=== PATIENT | male | born 1945 | race Caucasian/White ===

== ENCOUNTER → 2017-12-29 09:50 | Outpatient (CLI) | payer MEDICARE, SELFPAY ==
--- NOTE | 2017-12-29 09:55 | XR_ITS ---
XR knee RT 4V Comparison: Right knee 09/01/2010 History: Right knee pain Technique: Weightbearing AP, lateral and Rolon views were performed as well as oblique. Findings: There is osteoarthritis with narrowing of the medial compartment to ~ 2 mm or less Subchondral cystic changes are seen on both sides the joint most evident at the medial tibial condyle and I believe have progressed slightly in the interval. Similarly minimal marginal osteophytes about the intercondylar notch are slightly more evident today and likely some mild progression of degenerative change. Lateral compartment is well-maintained but with chondrocalcinosis noted. Patellofemoral relationships appear satisfactory on sunrise view. Question some slight roughening of the medial femoral aspect of the femoral trochlear groove. Vascular clips at medial aspect lower leg reflecting previous brain are seen. Slight calcification SFA popliteal trifurcation vessels have progressed slightly since 2010 Impression: Osteoarthritis right knee most pronounced at the medial compartment Only slight progression of findings since 2010. Chondrocalcinosis most evident at lateral compartment
== END ==
PROVIDERS: PCP Family Medicine; Visit Provider Orthopaedic Surgery
DX: M25.561 Pain in right knee (principal)
CPT/HCPCS: 73564

== ENCOUNTER → 2023-08-16 10:44 | Outpatient (POV) | payer MEDICARE, SELFPAY ==
--- NOTE | 2023-08-16 12:11 | EXP.PAIN.OV ---
HPI Data of Consult Patient: new to practice Consult date: 08/16/23 Requesting Physician: Yolande Slade APRN Primary Care Provider: Gustavo Martinez MD Consult Narrative Reason for consult: Low back pain, right leg pain, buttocks pain History of present illness: Mr. Lake is a 78 year old male who presents today as a new patient. He is a referral from [facility]. Today he rates his pain a 10 out of 10. Patient states his pain is all in his low back to buttocks area with radiating symptoms into his groin and leg. Patient states this has been going on for years and progressively worsened over time. Patient does state that he was previously with Dr. Cameron's pain management however the injections they tried never seem to work. Patient states that he had 5 in his right knee and that had multiple low back injections. Patient states that they never tried any other options. He describes his pain as an aching, throbbing sensation with occasional sharp shooting pains into his groin and testicle. He does state that he cannot sit due to the pain he experiences into his buttocks that radiates down. He has tried multiple pillows and different positioning along with Tylenol, heat and ice and topicals. Patient states that nothing seems to really help his pain. He states it does interfere with his ability to perform activities of daily living such as cooking and cleaning. Patient does have significant health history and is on blood thinner.. Patient does also state in the past he did have a procedure done by [facility] however he is unsure what that procedure garza. Patient has recently had x-ray imaging however denies any more advanced imaging. He states he is interested in any help we may be able to provide. Patient is currently managed with oxycodone 5 mg from his previous pain clinic. He states he does not want to take this medication and is willing to do anything he can to try and get relief. His Fred has been reviewed and is appropriate. CC: Yolande Slade APRN [facility] Disclaimer: The information contained in this section may have been updated after the patient was seen, as this information can be updated by other users. Social History Smoking Status: Current every day smoker alcohol intake: never current occupational status: retired Travel in the last 8 weeks: None housing: house Review of Systems Review of Systems Review of systems:: pertinent systems reviewed and negative unless documented below Review of systems (narrative): Review of Systems: General: No recent weight changes, no fever, no sleep disturbances Respiratory: No cough, no shortness of air, no recurring pulmonary infections Cardiovascular/peripheral vascular: No chest pain, no palpitations, no edema, no shortness of breath Gastrointestinal: No new onset incontinence, normal bowel movements reported Genitourinary: No new onset incontinence Musculoskeletal: Tailbone/buttocks pain Psychiatric: [Normal mood/affect] Neurological: [Denies weakness in extremities], [denies balance issues] Meds Home Medications and Allergies Home Medications Medication Instructions Recorded Confirmed Type aspirin 81 mg tablet,delayed 81 mg PO ONCE 12/29/17 History release (Adult Low Dose Aspirin) atorvastatin 80 mg tablet 80 mg PO ONCE 12/29/17 History New Prescriptions to Start Prescriptions: Allergies Allergy/AdvReac Type Severity Reaction Status Date / Time NO KNOWN ALLERGIES Allergy Uncoded 12/29/17 11:28 Objective Narrative: Physical Exam: General: Alert and oriented x3, no acute distress, pleasant and cooperative Lungs: Respirations even and unlabored, symmetrical chest expansion Eyes: PERRL Musculoskeletal: Flexion and extension of lumbar/sacrum [spine] somewhat guarded secondary to pain, [antalgic gait noted] point tenderness noted along sacral spine Neurological: Speech clear, no gross sensory deficit Additional findings Additional findings: Lumbar x-ray AP and lateral views of the lumbar spine were obtained. No prior exam for comparison. No acute fracture or malalignment. Vertebral body heights preserved. Moderate degenerative changes present. There are multilevel osteophytes noted. Patient has undergone a fusion at L3-L4 and right SI joint levels. There are postoperative changes in the right upper quadrant. Vascular calcifications present. No acute paraspinal abnormality Assessment and Plan *Assessment and plan (1) Chronic pain syndrome: Status: Acute Category: Medical Code(s): G89.4 - Chronic pain syndrome (2) Degenerative disc disease, lumbar: Status: Acute Category: Medical Code(s): M51.36 - Other intervertebral disc degeneration, lumbar region (3) Lumbar radiculopathy: Status: Acute Category: Medical Code(s): M54.16 - Radiculopathy, lumbar region (4) Buttock pain: Status: Acute Category: Medical Code(s): M79.18 - Myalgia, other site (5) Status post lumbar spinal fusion: Status: Acute Category: Surgical Code(s): Z98.1 - Arthrodesis status (6) Right leg pain: Status: Acute Category: Medical Code(s): M79.604 - Pain in right leg (7) Right groin pain: Status: Acute Category: Medical Code(s): R10.31 - Right lower quadrant pain (8) Right testicular pain: Status: Acute Category: Medical Code(s): N50.811 - Right testicular pain Plan Patient is experiencing significant pain in and around his sacral spine with limited range of motion of his lumbar spine and point tenderness at his sacrum with palpation. Patient is experiencing radiating symptoms into his groin and testicle as well into his leg. I have discussed with patient that he may benefit from a caudal epidural. Risk and benefits were discussed with the patient and he would like to proceed forward with this plan of care. Patient states he had been on blood thinner in the past however he states that currently he is not taking any of this. We will reach out to his provider who prescribes the Plavix to confirm that he is not taking this medication for that this is acceptable but he is not on his current medication prior to this injection. I will also order x-ray imaging of his sacrum due to the significant pain with palpation and radiating symptoms to his groin and testicle. I will also order advanced imaging of a MRI without contrast of his lumbar spine. Patient will be ordered compounded cream. Patient will be scheduled for caudal epidural under fluoroscopy. Patient has been instructed to contact the clinic with any concerns before the next appointment. Dr. Lombardi has reviewed this note and agrees with this plan of care. This note was dictated using voice recognition software and make contain errors or omissions.
[2023-08-16 12:49] VITALS: BP 127/85; PULSE 105; RESP 20; O2SAT 97; BMI 25.0
== END ==
LOC: SC.PAIN 10:46
PROVIDERS: PCP Family Medicine; Visit Provider Nurse Practitioner Family
DX: G89.4 Chronic pain syndrome (principal); M79.18 Myalgia, other site; Z98.1 Arthrodesis status; M79.604 Pain in right leg; R10.31 Right lower quadrant pain; N50.811 Right testicular pain; M51.16 Intervertebral disc disorders with radiculopathy, lumbar region
CPT/HCPCS: 99202; G0463

== ENCOUNTER 2023-08-16 12:00 | Outpatient (CLI) | payer MEDICARE, SELFPAY ==
--- NOTE | 2023-08-16 12:06 | XR_ITS ---
FINAL REPORT CLINICAL HISTORY: BUTTOCKS PAIN..si surgery COMPARISON: None FINDINGS: AP, lateral, and oblique views of the lumbar spine were obtained. There is no acute fracture or acute malalignment. The patient has undergone a prior right sacroiliac fusion. There is a mild compression deformity of the L1 vertebral body, favor chronic. The L3 and L4 vertebral bodies are fused. There is multilevel degenerative disc disease, most prominently at the L2-3 level. No acute paraspinal abnormality is identified. IMPRESSION: Prior right SI joint fusion. Mild compression deformity of the L1 vertebral body, favor chronic. L3 and L4 vertebral bodies are fused, with multilevel degenerative disc disease most prominently at the L2-3 level. Reviewed, Interpreted and Dictated by Elvia Boyd MD Transcribed by Amanda Gabriel Authenticated and [facility]
== END 2023-08-16 23:59 ==
LOC: RAD 12:01
PROVIDERS: PCP Plastic Surgery; Visit Provider Anesthesiology
DX: M54.50 Low back pain, unspecified (principal); M53.3 Sacrococcygeal disorders, not elsewhere classified; M79.604 Pain in right leg
CPT/HCPCS: 72110; 99202; G0463

== ENCOUNTER 2023-09-02 12:48 | Outpatient (CLI) | payer MEDICARE, SELFPAY ==
--- NOTE | 2023-09-02 12:54 | MR_ITS ---
FINAL REPORT CLINICAL HISTORY: LEG PAIN, SACIRAL PAIN, LBP FINDINGS: Multiplanar MR imaging of the lumbar spine was performed without contrast. On the sagittal T2-weighted images, disc degeneration is seen throughout. There is partial fusion at L3-4. There is mild retrolisthesis of L4 on L5 and L5 on S1. Mild, multilevel endplate changes are seen. There is no evidence of fracture. No bony mass is identified. The conus is seen at approximately the L1 level and has an unremarkable appearance. L1-2: Annular disc bulge with facet arthropathy and osteophytes. There is mild bilateral neuroforaminal narrowing. L2-3: Annular disc bulge with facet arthropathy and osteophytes. There is mild bilateral neuroforaminal narrowing. L3-4: Facet arthropathy and osteophytes with mild bilateral neuroforaminal narrowing. L4-5: Annular disc bulge with facet arthropathy and osteophytes. There is moderate right and severe left neuroforaminal narrowing. L5-S1: Annular disc bulge with facet arthropathy and osteophytes. There is moderate right and severe left neuroforaminal narrowing. Postoperative changes are noted of the right SI joint. IMPRESSION: Multilevel degenerative disc disease with severe left neuroforaminal narrowing at L4-5 and L5-S1. Reviewed, Interpreted and Dictated by Aristeo Hampton III, MD Transcribed by Sherry Sandra Authenticated and [facility]
== END 2023-09-02 23:59 ==
LOC: RAD 12:49
PROVIDERS: PCP Nurse Practitioner Family; Visit Provider Nurse Practitioner Family
DX: M54.50 Low back pain, unspecified (principal); M79.604 Pain in right leg; M53.3 Sacrococcygeal disorders, not elsewhere classified
CPT/HCPCS: 72148; 76376

== ENCOUNTER 2023-09-05 13:28 | Day surgery (SDC) | payer MEDICARE, SELFPAY ==
[2023-09-05 13:55] VITALS: BP 159/82; PULSE 100; RESP 18; TEMP 36.6; O2SAT 96; BMI 25.0
[2023-09-05] MEDS: methylPREDNISolone ACETATE 80MG/ML VIAL 80 MG (14:10)
[2023-09-05 14:11] VITALS: BP 188/90; PULSE 102; RESP 18; O2SAT 95
[2023-09-05] MEDS: LIDOCAINE 1% 5ML PF VIAL 5 ML (14:11)
[2023-09-05 14:12] VITALS: BP 188/90; PULSE 99; RESP 18; O2SAT 95
[2023-09-05 14:16] VITALS: BP 164/88; PULSE 93; RESP 18; O2SAT 96
--- NOTE | 2023-09-05 14:28 | EXP.PAIN.PRO ---
Procedure Date: 09/05/23 Time: 14:00 Anesthesiologist:: Juan Alberto Kendrick CRNA Complications:: None Pre-procedure Diagnosis:: Degenerative disc lumbar spine multilevels. Lumbar radiculopathy. Lumbar postlaminectomy syndrome lumbar spondylosis. Multilevel lumbar facet arthropathy Post-procedure Diagnosis:: Same. Indications for Procedure:: Patient is a very pleasant 78-year-old male comes our clinic today for caudal epidural steroid injection. He reports low back pain as well as bilateral leg radicular symptoms. He rates his pain 7/10. He describes pain as constant, dull, aching. Patient reports pain is in tenths in the morning when getting out of bed. However, throughout the day it does seem to calm down to some degree. Procedure Details:: Details of the procedure explained to the patient. The patient taken procedure and placed in the prone position on fluoroscopy table the area over the low lumbar caudal area was cleaned using chlorhexidine as a cleansing solution. Using a 25-gauge 3 and half inch spinal needle the caudal space was accessed with ease using fluoroscopy guidance and a lateral position. Needle position was confirmed using contrast dye and a cephalad spread. At this time after negative aspiration a 6 cc solution containing 4 mL of normal saline, 1 cc of 1% lidocaine, 80 mg of Depo-Medrol was injected without difficulty. Patient tolerated procedure without difficulty. No complications. Plan and Disposition:: Patient was discharged without incident.
== END 2023-09-05 14:16 | disposition home or self-care (01) ==
LOC: SC.PAINP 13:29
PROVIDERS: PCP Nurse Practitioner Family; Visit Provider Nurse Anesthetist, Certified Registered
DX: M51.16 Intervertebral disc disorders with radiculopathy, lumbar region (principal); M47.26 Other spondylosis with radiculopathy, lumbar region; M96.1 Postlaminectomy syndrome, not elsewhere classified
CPT/HCPCS: 62323; J1040

== ENCOUNTER 2023-09-14 14:21 | Outpatient (POV) | payer MEDICARE, SELFPAY ==
--- NOTE | 2023-09-14 14:54 | EXP.PAIN.SOA ---
[facility] Pain Management SOAP Note Subjective:: Patient is a pleasant 78-year-old male who presents today for follow-up of caudal epidural on 09/04/2020. Patient rates his pain a 10 out of 10. He states that he did have relief with this injection however it only lasted for a few hours. He does state that he is back to his baseline and has severe pain throughout his low back. He does state this is a chronic issue and does affect with his everyday life. He states he has difficulty performing activities of daily living such as cooking and cleaning or even simple ambulation. Patient was on prior pain medication and gabapentin from a different pain clinic. He does state that he finished his last gabapentin tablet last night. He states that Dr. Cameron's office has been titrating him down. patient is interested in any help we may be able to provide. He does state that he has interest in the intrathecal pump. His Fred has been reviewed and is appropriate. Review of Systems: General: No recent weight changes, no fever, no sleep disturbances Respiratory: No cough, no shortness of air, no recurring pulmonary infections Cardiovascular/peripheral vascular: No chest pain, no palpitations, no edema, no shortness of breath Gastrointestinal: No new onset incontinence, normal bowel movements reported Genitourinary: No new onset incontinence Musculoskeletal: Low back pain Psychiatric: [Normal mood/affect] Neurological: [Denies weakness in extremities], [denies balance issues] Objective:: Physical Exam: General: Alert and oriented x3, no acute distress, pleasant and cooperative Lungs: Respirations even and unlabored, symmetrical chest expansion Eyes: PERRL Musculoskeletal: Flexion and extension of lumbar [spine] somewhat guarded secondary to pain, [antalgic gait noted] Neurological: Speech clear, no gross sensory deficit FINDINGS: Multiplanar MR imaging of the lumbar spine was performed without contrast. On the sagittal T2-weighted images, disc degeneration is seen throughout. There is partial fusion at L3-4. There is mild retrolisthesis of L4 on L5 and L5 on S1. Mild, multilevel endplate changes are seen. There is no evidence of fracture. No bony mass is identified. The conus is seen at approximately the L1 level and has an unremarkable appearance. L1-2: Annular disc bulge with facet arthropathy and osteophytes. There is mild bilateral neuroforaminal narrowing. L2-3: Annular disc bulge with facet arthropathy and osteophytes. There is mild bilateral neuroforaminal narrowing. L3-4: Facet arthropathy and osteophytes with mild bilateral neuroforaminal narrowing. L4-5: Annular disc bulge with facet arthropathy and osteophytes. There is moderate right and severe left neuroforaminal narrowing. L5-S1: Annular disc bulge with facet arthropathy and osteophytes. There is moderate right and severe left neuroforaminal narrowing. Postoperative changes are noted of the right SI joint. IMPRESSION: Multilevel degenerative disc disease with severe left neuroforaminal narrowing at L4-5 and L5-S1. Reviewed, Interpreted and Dictated by Aristeo Hampton III, MD Transcribed by Sherry Sandra Authenticated and [facility] Assessment:: Degenerative disc disease of lumbar spine with lumbar radiculopathy symptoms, prior lumbar fusion, right groin pain, right testicular pain Plan:: Patient is experiencing significant pain throughout his low back. I have reviewed over the MRI findings with the patient. I have also discussed with the patient that we will start him on [place] 5 mg 3 times daily and send and also a prescription of the gabapentin 600 mg twice daily. I have discussed with the patient about starting his medications. He reports he is getting monthly and he acknowledges understanding and is in agreement. We will have him do a urine drug screen today. Patient does also state that he is not getting any additional medication from his prior pain clinic. I have reviewed over the intrathecal pain pump information with risk and benefits and educational handouts. He does state he would like to proceed forward with this plan of care. Patient has tried and failed conservative therapy including prior back fusion. I will order the patient a psychological evaluation and if he is deemed an appropriate candidate we will proceed forward with the intrathecal pump trial at a later date. Patient will return to clinic in 1 month for reevaluation of symptoms and plan of care. Patient has been instructed to contact the clinic with any concerns before the next appointment. Dr. Lombardi has reviewed this note and agrees with this plan of care. This note was dictated using voice recognition software and make contain errors or omissions. [facility] Disclaimer: The information contained in this section may have been updated after the patient was seen, as this information can be updated by other users. Medical History HTN (hypertension) HLD (hyperlipidemia) Heart disease Surgical History Surgical history unknown Family History Other No significant family history Social History Smoking Status: Current every day smoker alcohol intake: never current occupational status: retired Travel in the last 8 weeks: None housing: house
[2023-09-14 15:28] VITALS: BP 162/99; PULSE 118; RESP 18; O2SAT 94; BMI 24.3
[2023-09-14 17:53] LABS: Amphetamine/Metha Screen,Urine Negative ng/ml (<1000)
[2023-09-14 17:54] LABS: Barbiturates Screen,Urine Negative ng/ml (<200); Benzodiazepines Screen,Urine Negative ng/ml (<200)
[2023-09-14 17:55] LABS: Cannabinoid Screen,Urine Positive ng/ml (<50); Cocaine Screen,Urine Negative ng/ml (<300)
[2023-09-14 17:56] LABS: Methadone Screen,Urine Negative ng/ml (<300)
[2023-09-14 17:57] LABS: Opiate Screen,Urine Positive ng/ml (<300); Phencyclidine Screen,Urine Negative ng/ml (<25)
[2023-09-22 13:34] LABS: Oxycodone (GC/MS) >3000 ng/mL (Cutoff=100); Oxymorphone (GC/MS) >3000 ng/mL (Cutoff=100)
== END 2023-09-14 23:59 | disposition home or self-care (01) ==
PROVIDERS: PCP Nurse Practitioner Family; Visit Provider Nurse Practitioner Family
DX: Z79.891 Long term (current) use of opiate analgesic (principal); M51.16 Intervertebral disc disorders with radiculopathy, lumbar region; M43.26 Fusion of spine, lumbar region; R10.30 Lower abdominal pain, unspecified; N50.811 Right testicular pain
CPT/HCPCS: 80307; 80361; 80365; 99212; G0463; G0480

== ENCOUNTER 2023-10-16 13:10 | Outpatient (POV) | payer MEDICARE, SELFPAY ==
--- OUTSIDE RECORDS SUMMARY | 2023-10-16 13:13 | XMS_ITS | Continuity of Care Document ---
Author Name Unknown Address [address] [place], [place] [id number] Organization [facility] Phone Care Team Providers Care Pharmaceutical Physician Name Role Phone INESSA LEUNG Primary Attending Unavailable DEION HAMILTON Primary Care INESSA LEUNG Unavailable Unavailable INESSA LEUNG Admitting Unavailable ALLERGIES AND ADVERSE REACTIONS ALLERGIES AND ADVERSE REACTIONS Code System Allergy Substance Adverse Reaction Date Reaction (Severity) Comment Status Reported By Updated By No Known Allergies [id number] on June 05, 2023 2:20:35 PM [place] ASSESSMENTS Asthma ; Hyperlipidemia ; Hypertensive disorder ; Osteoarthritis ; Pain in right hip joint ; FAMILY HISTORY RELATION: Father Status: Cause of : Unknown Age at : Unknown SNOMED-CT Diagnosis Age At Onset [id number] Parkinson's disease RELATION: Mother Status: Cause of : Unknown Age at : Unknown SNOMED-CT Diagnosis Age At Onset [id number] Neoplasm of colon [id number] Heart disease RELATION: Brother Status: LIVING SNOMED-CT Diagnosis Age At Onset [id number] Hypertensive disorder [id number] Diabetes mellitus PROBLEMS PATIENT PROBLEMS Code Description/Comments Status Updated By [id number] Asthma active [id number] on 2022 5:06:05 PM UT [id number] Hyperlipidemia active [id number] on 2022 5:06:07 PM UT 08372722 Hypertensive disorder active [id number] on June 01, 2023 5:06:08 PM UT [id number] Osteoarthritis active [id number] on 2022 5:06:09 PM UT [id number] Pain in right hip joint active G [id number] on June 05, 2023 2:20:47 PM [place] TREATMENT PLAN DISCHARGE MEDICATIONS Status RXNORM Medication Dose Route Frequency Dates Comments U pdated By Patient discharge medication information is not available. PATIENT OPEN ORDERS Code System Description Frequency Occurrences Priority [place] [address]-0 LOINC Unspecified body region Fluoroscopy Less than 1 h ONE TIME 0 Routine June 05, 2023 2:46:00 PM [facility] XOCHITL WYLIE [id number] on June 05, 2023 2:49:00 PM [facility] SCHEDULED PROCEDURES Code System Description Status Scheduled Date Upd ated By Patient scheduled procedure information is not available. MEDICATIONS HOME MEDICATIONS Status RXNORM Medication Dose Route Frequency Dates Comments R eported By Updated By Active gabapentin (NEURONTIN) 400.0 MG PO TID Last Dose: [id number] on June 01, 2023 5:06:17 PM [facility] Active Lopressor . 25.0 MG PO DAILY Last Dose: [id number] on June 01, 2023 5:06:22 PM [facility] Active 011378 Atorvastatin Calcium Oral Tablet 80 MG 80.0 MG PO DAILY Last Dose: [id number] on June 01, 2023 5:06:28 PM [facility] Active 4523266 Albuterol Sulfate HFA Inhalation Aerosol Solution 108 (90 Base) MCG/ACT 1.0 PUF INHALED Q4HPRN Last Dose: [id number] on June 01, 2023 5:06:31 PM [facility] Active 965271 Cefuroxime Axetil Oral Tablet 500 MG 500.0 MG PO BID Last Dose: [id number] on June 01, 2023 5:06:35 PM [facility] Active 902395 Clopidogrel Bisulfate Oral Tablet 75 MG 75.0 MG PO DAILY Last Dose: [id number] on June 01, 2023 5:06:40 PM [facility] Active 044279 levoFLOXacin Oral Tablet 500 MG 500.0 MG PO DAILY Last Dose: [id number] on June 01, 2023 5:06:46 PM [facility] Active 8325647 oxyCODONE HCl Oral Tablet 10 MG 10.0 MG PO Q8H Last Dose: [id number] on June 01, 2023 5:06:50 PM [facility] DISCHARGE MEDICATIONS Status RXNORM Medication Dose Route Frequency Dates Comments Physic tom Updated By No Discharge Medication Info rmation Available INPATIENT MEDICATIONS Status RXNORM Medication Dose Route Frequency Rate Quantity Dates Comments Physician Updated By [facility] [id number] lidocaine (XYLOCAINE) 1 % SOLN 20.0 ML ONE TIME ONLY Start: Decemb er 2022 12:16: 00 PM [facility] End: Decemb er 18, 2023 12:16: 00 PM [facility] MUNISWAMY INESSA INTERFAC ED on June 05, 2023 12:16:00 PM UT Discont inued DEPO-MEDROL 40 MG/ML SUSP 40.0 MG INTRAM USCULA R ONE TIME ONLY Start: [facility] 2022 12:16: 00 PM UTC End: [facility] 2022 12:16: 00 PM UT MUNISWAMY INESSA INTERFAC ED on June 05, 2023 12:16:00 PM UT SOCIAL HISTORY SOCIAL HISTORY SNOMED-CT Social History Element Description Effective Dates Offered Cessation Comment UpdatedBy [id number] Current Tobacco smoking status Never Smoked [id number] on June 01, 2023 5:05:36 PM [facility] [id number] Historical Tobacco smoking status Current Every Day Smoker 1/2-1 ppd [id number] on January 26, 2022 4:23:46 PM [facility] [id number] Historical Tobacco smoking status Former Smoker [id number] on April 19, 2021 1:04:17 PM [place] SOCIAL HISTORY - Gender Sex: Male SOCIAL HISTORY - Sexual Behavior Sexual Orientation Gender Identity SNOMED-CT Description SNO MED -CT Description Activity Level No of Partners Partner Type UpdatedBy Information is not available VITAL SIGNS PATIENT VITAL SIGNS This section displays the mo st recent value for each vital sign as of June 06, 2023 5:07:55 AM [facility] Loinc Code Vital Sign Activity Date Result Updated By 8302-2 Body height June 01 5:05:28 PM UT 167.64 cm (66.0 in) [id number] on June 01, 2023 5:05:28 PM [facility] 03403-8 Body mass index (BMI) [Ratio] June 01, 2023 5:05:28 PM UT 26.467 kg/m2 [id number] on June 01, 2023 5:05:28 PM [facility] 3140-1 Body Surface Area Derived From Formula June 01, 2023 5:05:28 PM UT 1.8384 m2 [id number] on June 01, 2023 5:05:28 PM [facility] 13111-6 Body weight Measured June 01, 2023 5:05:28 PM UT 74.389 kg (164.0 lb) [id number] on June 01, 2023 5:05:28 PM [facility] PEDIATRIC GROWTH CHART - VITAL SIGNS This section displays Head C ircumference Percentile, Weight for Length Percentile and BMI Percentile Loinc Code Pediatric Measure Age (Months) Result Updat ed By No Pediatric Growth Chart Pe rcentile Information Available. PROCEDURES PATIENT PROCEDURES Procedure information is not available. PROCEDURE NOTE Note Title Operative/Procedure Note Date Of Service June 05, 2023 2: 34:50 PM [facility] Created By [id number] on June 05, 2023 2:34:50 PM [facility] Signed By [id number] on June 05, 2023 2:35:30 PM [facility] Pre-Procedure Diagnosis Pain in right hip joint Post- Procedure Diagnosis Pain in right hip joint Procedure / Surgery None Intra-articular right hip injection Anesthesia Type Local anesthesia Estimated Blood Loss None Complications None Present at Time of Surgery Present Indication Right hip pain Procedure Description / Findings Right Hip Injection The patient understands the risks and benefits of the procedure and wishes to proceed. The patient was seen in the preoperative area. Patient's consent was obtained and updated. Vitals were taken. Patient was then brought to the procedure suite and placed in a supine position for the injection. The appropriate anatomic area was widely prepped with Chloraprep and draped in a sterile fashion. Noninvasive monitoring per routine anesthesia protocol was placed. Under fluoroscopic guidance using an AP view, a 22 gauge straight tip spinal needle was passed through skin and anesthetized with 1% Lidocaine without epinephrine. The needle tip was guided to the right hip joint using fluoroscopy. 2mL of [id number] preservative free contrast were injected into the joint to confirm location. A clear outline was obtained and 5mL of steroid solution containing 4mL 0.25% bupivacaine, and 1mL 40mg Depo-medrol was injected. The patient tolerated with no refugio-procedural complications. A sterile dressing was placed over the puncture sites. Specimens None Tubes/Drains None Implants None Disposition of Patient Home Electronically signed by XOCHITL LEDBETTER on [address] [facility] Problems Concern Status Health Concern problem infor mation not available. Smoking Status Status Years Used Consumed packs p er day Health Concern smoking histo ry information not available. Family History Concern Status Health Concern family histor y information not available. ENCOUNTERS ENCOUNTER INFORMATION Reason for Visit PAIN IN RIGHT HIP Admission June 05, 2023 1:49:00 PM UTC [address] [address] Discharge June 05, 2023 6:49:00 PM UTC DISCHARGED TO HOME OR SELF CARE ENCOUNTER DIAGNOSES Notes information is not otf ilable. Code System Diagnosis Onset Date Diagnosis information is not available. ABSTRACT DIAGNOSES Code System Diagnosis Updated By M25.551 ICD10 PAIN IN RIGHT HIP [id number] on May 24, 2023 8:34:29 PM UTC CARE TEAM Care Pharmaceutical Physician Role INESSA LEUNG Primary Attending DEION HAMILTON Primary Care INESSA LEUNG Referring INESSA LEUNG Admitting CARE TEAM CARE merchandising assistant Role on Team Status Start Date End Date Update d By ALFONSO Mayer MD PHY PCP normal May 24, 2023 8:34:29 PM UTC June 05, 2023 6:49:00 PM UTC [id number] on May 24, 2023 8:34:29 PM UTC XOCHITL WYLIE PHY Referring normal May 24, 2023 8:34:29 PM UTC June 05, 2023 6:49:00 PM UTC [id number] on May 24, 2023 8:34:29 PM UTC XOCHITL LEDBETTER Attending normal May 24, 2023 8:34:29 PM UTC June 05, 2023 6:49:00 PM UTC [id number] on May 24, 2023 8:34:29 PM UTC MUNJOSY WYLIE PHY Admitting normal May 24, 2023 8:34:29 PM UTC June 05, 2023 6:49:00 PM UTC [id number] on May 24, 2023 8:34:29 PM UTC
--- OUTSIDE RECORDS SUMMARY | 2023-10-16 13:13 | XMS_ITS | Continuity of Care Document ---
Author Name Unknown Address [address] [place], [place] [id number] Organization [facility] Phone Care Team Providers Care Sign Writer Hand Name Role Phone INESSA LEUNG Surgeon Unavailable INESSA LEUNG Primary Attending Unavailable DEION HAMILTON Primary Care INESSA LEUNG Unavailable Unavailable INESSA LEUNG Admitting Unavailable ALLERGIES AND ADVERSE REACTIONS ALLERGIES AND ADVERSE REACTIONS Code System Allergy Substance Adverse Reaction Date Reaction (Severity) Comment Status Reported By Updated By No Known Allergies [id number] on June 05, 2023 2:20:35 PM [facility] Asthma ; Hyperlipidemia ; Hypertensive disorder ; Osteoarthritis ; Pain in right hip joint ; FAMILY HISTORY RELATION: Father Status: Cause of : Unknown Age at : Unknown SNOMED-CT Diagnosis Age At Onset [id number] Parkinson's disease RELATION: Mother Status: Cause of : Unknown Age at : Unknown SNOMED-CT Diagnosis Age At Onset [id number] Neoplasm of colon [id number] Heart disease RELATION: Brother Status: LIVING SNOMED-CT Diagnosis Age At Onset 14319843 Hypertensive disorder 27433056 Diabetes mellitus PROBLEMS PATIENT PROBLEMS Code Description/Comments Status Updated By [id number] Asthma active [id number] on 2022 5:06:05 PM [facility] 92648103 Hyperlipidemia active HVJ0268 on 2022 5:06:07 PM UT 39122561 Hypertensive disorder active [id number] 4 on June 01, 2023 5:06:08 PM UT 827066092 Osteoarthritis active [id number] on 2022 5:06:09 PM UT [id number] Pain in right hip joint active G [id number] on June 05, 2023 2:20:47 PM UT TREATMENT PLAN DISCHARGE MEDICATIONS Status RXNORM Medication Dose Route Frequency Dates Comments U pdated By Patient discharge medication information is not available. PATIENT OPEN ORDERS Code System Description Frequency Occurrences Priority Start [place] [address]-1 LOINC Unspecified body region Fluoroscopy Less than 1 h ONE TIME 0 Routine June 05, 2023 2:46:00 PM [facility] XOCHITL WYLIE [id number] on June 05, 2023 2:49:00 PM [facility] SCHEDULED PROCEDURES Code System Description Status Scheduled Date Upd ated By Patient scheduled procedure information is not available. MEDICATIONS HOME MEDICATIONS Status RXNORM Medication Dose Route Frequency Dates Comments R eported By Updated By Active gabapentin (NEURONTIN) 400.0 MG PO TID Last Dose: [id number] on June 01, 2023 5:06:17 PM [facility] Active Lopressor . 25.0 MG PO DAILY Last Dose: [id number] on June 01, 2023 5:06:22 PM [facility] Active 951538 Atorvastatin Calcium Oral Tablet 80 MG 80.0 MG PO DAILY Last Dose: [id number] on June 01, 2023 5:06:28 PM [facility] Active 8169759 Albuterol Sulfate HFA Inhalation Aerosol Solution 108 (90 Base) MCG/ACT 1.0 PUF INHALED Q4HPRN Last Dose: [id number] on June 01, 2023 5:06:31 PM [facility] Active 006992 Cefuroxime Axetil Oral Tablet 500 MG 500.0 MG PO BID Last Dose: [id number] on June 01, 2023 5:06:35 PM [facility] Active 429443 Clopidogrel Bisulfate Oral Tablet 75 MG 75.0 MG PO DAILY Last Dose: [id number] on June 01, 2023 5:06:40 PM [facility] Active 034251 levoFLOXacin Oral Tablet 500 MG 500.0 MG PO DAILY Last Dose: [id number] on June 01, 2023 5:06:46 PM [facility] Active 8742909 oxyCODONE HCl Oral Tablet 10 MG 10.0 MG PO Q8H Last Dose: [id number] on June 01, 2023 5:06:50 PM [facility] DISCHARGE MEDICATIONS Status RXNORM Medication Dose Route Frequency Dates Comments Physic tom Updated By No Discharge Medication Info rmation Available INPATIENT MEDICATIONS Status RXNORM Medication Dose Route Frequency Rate Quantity Dates Comments Physician Updated [facility] [id number] lidocaine (XYLOCAINE) 1 % SOLN 20.0 ML ONE TIME ONLY Start: Decemb er 2022 12:16: 00 PM UTC End: Decemb er 2022 12:16: 00 PM UTC MUNISWAMY INESSA INTERFAC ED on June 05, 2023 12:16:00 PM UT Discont inued DEPO-MEDROL 40 MG/ML SUSP 40.0 MG INTRAM USCULA R ONE TIME ONLY Start: Decemb er 2022 12:16: 00 PM UTC End: Decemb er 2022 12:16: 00 PM UTC MUNISWAMY INESSA INTERFAC ED on June 05, 2023 12:16:00 PM UT SOCIAL HISTORY SOCIAL HISTORY SNOMED-CT Social History Element Description Effective Dates Offered Cessation Comment UpdatedBy [id number] Current Tobacco smoking status Never Smoked [id number] on June 01, 2023 5:05:36 PM UT [id number] Historical Tobacco smoking status Current Every Day Smoker 1/2-1 ppd [id number] on January 26, 2022 4:23:46 PM UT 8990412 Historical Tobacco smoking status Former Smoker [id number] on April 19, 2021 1:04:17 PM UT SOCIAL HISTORY - Gender Sex: Male SOCIAL HISTORY - Sexual Behavior Sexual Orientation Gender Identity SNOMED-CT Description SNO MED -CT Description Activity Level No of Partners Partner Type UpdatedBy Information is not available VITAL SIGNS PATIENT VITAL SIGNS This section displays the mo st recent value for each vital sign as of June 08, 2023 4:18:24 PM UT Loinc Code Vital Sign Activity Date Result Updated By 8302-2 Body height June 01 5:05:28 PM UT 167.64 cm (66.0 in) [id number] on June 01, 2023 5:05:28 PM [facility] 25114-0 Body mass index (BMI) [Ratio] June 01, 2023 5:05:28 PM UT 26.467 kg/m2 [id number] on June 01, 2023 5:05:28 PM [facility] 3140-1 Body Surface Area Derived From Formula June 01, 2023 5:05:28 PM UT 1.8384 m2 [id number] on June 01, 2023 5:05:28 PM [facility] 50909-1 Body weight Measured June 01, 2023 5:05:28 PM UT 74.389 kg (164.0 lb) [id number] on June 01, 2023 5:05:28 PM UT PEDIATRIC GROWTH CHART - VITAL SIGNS This section displays Head C ircumference Percentile, Weight for Length Percentile and BMI Percentile Loinc Code Pediatric Measure Age (Months) Result Updat ed By No Pediatric Growth Chart Pe rcentile Information Available. PROCEDURES PATIENT PROCEDURES Procedure information is not available. PROCEDURE NOTE Note Title Operative/Procedure Note Date Of Service June 05, 2023 2: 34:50 PM UTC Created By [id number] on June 05, 2023 2:34:50 PM UT Signed By [id number] on June 05, 2023 2:35:30 PM UTC Pre-Procedure Diagnosis Pain in right hip joint [...] right hip joint using fluoroscopy. 2mL of [id number] preservative free contrast were injected into the joint to confirm location. A clear outline was obtained and 5mL of steroid solution containing 4mL 0.25% bupivacaine, and 1mL 40mg Depo-medrol was injected. The patient tolerated with no refugio-procedural complications. A sterile dressing was placed over the puncture sites. Specimens None Tubes/Drains None Implants None Disposition of Patient Home Electronically signed by XOCHITL LEDBETTER on [address] [facility] Problems Concern Status Health Concern problem infor mation not available. Smoking Status Status Years Used Consumed packs p er day Health Concern smoking histo ry information not available. Family History Concern Status Health Concern family histor y information not available. ENCOUNTERS ENCOUNTER INFORMATION Reason for Visit PAIN IN RIGHT HIP Admission June 05, 2023 1:49:00 PM [facility] [address] [facility] [address] Discharge June 05, 2023 6:49:00 PM UT DISCHARGED TO HOME OR SELF CARE ENCOUNTER DIAGNOSES Notes information is not otf ilable. Code System Diagnosis Onset Date Diagnosis information is not available. 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 [id number] on June 08, 2023 4:17:55 PM UT M48.061 ICD10 SPINAL STENOSIS, LUMBAR REGION WITHOUT NEUROGENIC CLAUDICATION [id number] on June 08, 2023 4:17:55 PM UT M79.2 ICD10 NEURALGIA AND NEURITIS, UNSP ECIFIED [id number] on June 08, 2023 4:17:55 PM UT M46.00 ICD10 SPINAL ENTHESOPATHY, SITE UN SPECIFIED [id number] on June 08, 2023 4:17:55 PM UT C92.01 ICD10 ACUTE MYELOBLAST IC LEUKEMIA, IN REMISSION [id number] on June 08, 2023 4:17:55 PM UT Z91.81 ICD10 HISTORY OF FALLING [id number] o n June 08, 2023 4:17:55 PM UT M70.71 ICD10 OTHER BURSITIS OF HIP, RIGHT HIP [id number] on June 08, 2023 4:17:55 PM UT F11.20 ICD10 OPIOID DEPENDENCE, UNCOMPLIC ATED [id number] on June 08, 2023 4:17:55 PM UT CARE TEAM Care Sign Writer Hand Role INESSA LEUNG Surgeon INESSA LEUNG Primary Attending [facility] Primary Care INESSA LEUNG Referring INESSA LEUNG Admitting CARE TEAM CARE general supervisor Role on Team Status Start Date End Date Update d By XOCHITL LEDBETTER Surgeon normal June 05, 2023 1:49:00 PM UT June 05, 2023 6:49:00 PM UTC [id number] on June 08, 2023 4:18:04 PM UTC ALFONSO Mayer MD PHY PCP normal May 24, 2023 8:34:29 PM UTC June 05, 2023 6:49:00 PM UTC [id number] on June 08, 2023 4:18:04 PM UTC XOCHITL LEDBETTER Referring normal May 24, 2023 8:34:29 PM UTC June 05, 2023 6:49:00 PM UTC [id number] on June 08, 2023 4:18:04 PM UTC XOCHITL LEDBETTER Attending normal May 24, 2023 8:34:29 PM UTC June 05, 2023 6:49:00 PM UTC [id number] on June 08, 2023 4:18:04 PM UTC XOCHITL WYLIE PHY Admitting normal May 24, 2023 8:34:29 PM UTC June 05, 2023 6:49:00 PM UTC [id number] on June 08, 2023 4:18:04 PM UTC
--- NOTE | 2023-10-16 14:01 | A.OFFVIS_ITS ---
[facility] Pain Management SOAP Note Subjective:: Patient is a pleasant 78-year-old male who presents today for medication refill and follow-up. He rates his pain a 9 out of 10. Patient denies any new trauma or injury. He does state from our last visit where he did want to proceed forward with the pump trial option he officially has his psych eval scheduled on October 22. Patient was also prescribed his gabapentin 600 mg twice a day and [place] 5 mg 3 times a day for a temporary basis until we could proceed forward with the pump trial. Patient denies any side effects from these medications. He states that they really do not do a whole lot for his pain. Patient states that due to his 's health he has had to step up around the house and doing more housework. He states that he has very limited quality of life due to the chronic pain. His Fred has been reviewed and is appropriate. Review of Systems: General: No recent weight changes, no fever, no sleep disturbances Respiratory: No cough, no shortness of air, no recurring pulmonary infections Cardiovascular/peripheral vascular: No chest pain, no palpitations, no edema, no shortness of breath Gastrointestinal: No new onset incontinence, normal bowel movements reported Genitourinary: No new onset incontinence Musculoskeletal: Low back pain Psychiatric: [Normal mood/affect] Neurological: [Denies weakness in extremities], [denies balance issues] Objective:: Physical Exam: General: Alert and oriented x3, no acute distress, pleasant and cooperative Lungs: Respirations even and unlabored, symmetrical chest expansion Eyes: PERRL Musculoskeletal: Flexion and extension of lumbar [spine] somewhat guarded secondary to pain, [antalgic gait noted] Neurological: Speech clear, no gross sensory deficit Assessment:: Degenerative disc disease of lumbar spine with lumbar radiculopathy symptoms, prior lumbar fusion, right groin pain, right testicular pain Plan:: I did review over the patient's finding regarding his urine drug screen. Patient was previously prescribed oxycodone from an outside provider and states that he knew that there was a little bit remaining in his system from our last visit. I have counseled the patient that we will rescreen him today. I did employee counselor the patient that if his drug screen continues to be inappropriate that we will not be able to proceed forward with additional refills in the future. Patient acknowledges understanding. I will send in a refill of his gabapentin and [place] and provide a 1 month supply of this medication. We will have the patient follow-up in 2 weeks following his psych eval. Risks and benefits of the medication have been explained in detail to the patient. The patient does understand the risk of dependence on the medication when given over a prolonged period. Patient has been advised of risks of oversedation with the prescribed medication. Narcan has been offered to the paitent in the event of oversedation. Patient has been advised that a family member should also be educated regarding administration of Narcan. The patient has been advised to consult with his/her primary care provider and pharmacist regarding drug-drug interaction of medications currently prescribed. Patient has been prescribed a controlled substance after being counseled on the medication, medication safety, and possible side effects. Opioid contract was reviewed and signed by the patient, and that they have agreed to all of the terms set forth by our compliance program. Patient has been instructed to contact the clinic with any concerns before the next appointment. Dr. Lombardi has reviewed this note and agrees with this plan of care. This note was dictated using voice recognition software and make contain errors or omissions. [facility] Disclaimer: The information contained in this section may have been updated after the patient was seen, as this information can be updated by other users. Medical History HTN (hypertension) HLD (hyperlipidemia) Heart disease Surgical History Surgical history unknown Family History Other No significant family history Social History Smoking Status: Current every day smoker alcohol intake: never current occupational status: retired Travel in the last 8 weeks: None housing: house
[2023-10-16 15:15] VITALS: BP 155/84; PULSE 82; RESP 18; O2SAT 94; BMI 24.3
[2023-10-16 16:52] LABS: Barbiturates Screen,Urine Negative ng/ml (<200)
[2023-10-16 16:53] LABS: Amphetamine/Metha Screen,Urine Negative ng/ml (<1000); Benzodiazepines Screen,Urine Negative ng/ml (<200)
[2023-10-16 16:54] LABS: Cannabinoid Screen,Urine Negative ng/ml (<50); Methadone Screen,Urine Negative ng/ml (<300)
[2023-10-16 16:55] LABS: Cocaine Screen,Urine Negative ng/ml (<300)
[2023-10-16 16:56] LABS: Opiate Screen,Urine Positive ng/ml (<300); Phencyclidine Screen,Urine Negative ng/ml (<25)
== END 2023-10-16 23:59 | disposition home or self-care (01) ==
PROVIDERS: PCP Nurse Practitioner Family; Visit Provider Nurse Practitioner Family
DX: Z79.891 Long term (current) use of opiate analgesic (principal); M51.16 Intervertebral disc disorders with radiculopathy, lumbar region; M43.26 Fusion of spine, lumbar region; R10.813 Right lower quadrant abdominal tenderness; N50.811 Right testicular pain
CPT/HCPCS: 80307; 80361; 80365; 99212; G0463; G0480

== ENCOUNTER 2023-10-30 13:32 | Outpatient (POV) | payer MEDICARE, SELFPAY ==
--- NOTE | 2023-10-30 14:04 | A.OFFVIS_ITS ---
[facility] Pain Management SOAP Note Subjective:: Patient is a pleasant 78-year-old male who presents today for follow-up for psychological evaluation. He rates his pain a 10 out of 10. Patient denies any new trauma or injury. Patient states he continues to have chronic pain throughout his back. He states that he is still wanting to proceed forward with the pump trial. He states the oral medication we sent in just does not seem to do a whole lot. Patient does state that he has chronic pain and that now they are thinking possibly that his even has cancer. Patient is prescribed his gabapentin 600 mg twice a day and Echo 5 mg 3 times. Patient denies any side effects from these medications. His Fred has been reviewed and is appropriate. Review of Systems: General: No recent weight changes, no fever, no sleep disturbances Respiratory: No cough, no shortness of air, no recurring pulmonary infections Cardiovascular/peripheral vascular: No chest pain, no palpitations, no edema, no shortness of breath Gastrointestinal: No new onset incontinence, normal bowel movements reported Genitourinary: No new onset incontinence Musculoskeletal: Low back pain Psychiatric: [Normal mood/affect] Neurological: [Denies weakness in extremities], [denies balance issues] Objective:: Physical Exam: General: Alert and oriented x3, no acute distress, pleasant and cooperative Lungs: Respirations even and unlabored, symmetrical chest expansion Eyes: PERRL Musculoskeletal: Flexion and extension of lumbar [spine] somewhat guarded secondary to pain, [antalgic gait noted] Neurological: Speech clear, no gross sensory deficit Assessment:: Degenerative disc disease of lumbar spine with lumbar radiculopathy symptoms, prior lumbar fusion, right groin pain, right testicular pain Plan:: Patient continues to experience significant pain throughout his low back. Patient was found to be a appropriate patient for the intrathecal pain pump trial. Patient states he would like to proceed forward with this option. We did review over again the risk and benefits. Patient will be scheduled for a intrathecal pain pump trial under fluoroscopy. Patient has tried and failed conservative therapies including continued at home stretching exercise for longer than 6 weeks. Patient has been instructed to contact the clinic with any concerns before the next appointment. Dr. Lombardi has reviewed this note and agrees with this plan of care. This note was dictated using voice recognition software and make contain errors or omissions. [facility] Disclaimer: The information contained in this section may have been updated after the patient was seen, as this information can be updated by other users. Medical History HTN (hypertension) HLD (hyperlipidemia) Heart disease Surgical History Surgical history unknown Family History Other No significant family history Social History Smoking Status: Current every day smoker alcohol intake: never current occupational status: other Travel in the last 8 weeks: None housing: house
== END 2023-10-30 23:59 | disposition home or self-care (01) ==
LOC: SC.PAIN 13:33
PROVIDERS: PCP Physician Assistant; Visit Provider Nurse Practitioner Family
DX: M51.16 Intervertebral disc disorders with radiculopathy, lumbar region (principal); M43.26 Fusion of spine, lumbar region; R10.813 Right lower quadrant abdominal tenderness; N50.811 Right testicular pain
CPT/HCPCS: 99212; G0463

== ENCOUNTER 2023-12-27 08:22 | Outpatient (POV) | payer MEDICARE, SELFPAY ==
[2023-12-27 08:38] VITALS: BP 156/80; PULSE 77; RESP 18; O2SAT 94; BMI 25.8
--- NOTE | 2023-12-27 08:58 | EXP.PAIN.SOA ---
[facility] Disclaimer: The information contained in this section may have been updated after the patient was seen, as this information can be updated by other users. Medical History HTN (hypertension) HLD (hyperlipidemia) Heart disease Surgical History Surgical history unknown Family History Other No significant family history Social History Smoking Status: Current every day smoker alcohol intake: never current occupational status: other Travel in the last 8 weeks: None housing: house PM Subjective & Objective Subjective Subjective:: Patient is a pleasant 78-year-old male who presents today for medication refill and follow-up. Today he rates his pain a 10 out of 10. He denies any new trauma or injury. He is scheduled for his intrathecal pump trial January 18. Patient does state that he continues to be in constant pain and that his medications does help but only to take the edge off. Patient is currently managed with gabapentin 600 mg twice a day and [place] 5 mg 3 times a day. His Fred has been reviewed and is appropriate. Review of Systems: General: No recent weight changes, no fever, no sleep disturbances Respiratory: No cough, no shortness of air, no recurring pulmonary infections Cardiovascular/peripheral vascular: No chest pain, no palpitations, no edema, no shortness of breath Gastrointestinal: No new onset incontinence, normal bowel movements reported Genitourinary: No new onset incontinence Musculoskeletal: Low back pain Psychiatric: [Normal mood/affect] Neurological: [Denies weakness in extremities], [denies balance issues] Pain at rest (0-10 scale): 10 Objective Objective:: Physical Exam: General: Alert and oriented x3, no acute distress, pleasant and cooperative Lungs: Respirations even and unlabored, symmetrical chest expansion Eyes: PERRL Musculoskeletal: Flexion and extension of lumbar [spine] somewhat guarded secondary to pain, [antalgic gait noted] Neurological: Speech clear, no gross sensory deficit Has patient had previous pain injection?: No Conservative treatment options previously tried: Prescription medications Length of treatment: Longer than 6 weeks Meds Home Medications and Allergies Home Medications Medication Instructions Recorded Confirmed Type aspirin 81 mg tablet,delayed 81 mg PO ONCE 12/29/17 12/27/23 History release (Adult Low Dose Aspirin) atorvastatin 80 mg tablet 80 mg PO ONCE 12/29/17 12/27/23 History clopidogrel 75 mg tablet 75 mg PO DAILY Blood Thinner 08/16/23 12/27/23 History losartan 50 mg tablet 50 mg PO DAILY BLOOD PRESSURE 08/16/23 12/27/23 History metoprolol succinate 50 mg 50 mg PO DAILY BLOOD PRESSURE 08/16/23 12/27/23 History tablet,extended release 24 hr gabapentin 600 mg tablet 600 mg PO BID #60 tabs 11/27/23 12/27/23 Rx hydrocodone 5 mg-acetaminophen 325 1 tab PO TID PRN pain #90 tabs 11/27/23 12/27/23 Rx mg tablet New Prescriptions to Start Prescriptions: Allergies Allergy/AdvReac Type Severity Reaction Status Date / Time NO KNOWN ALLERGIES Allergy Uncoded 12/29/17 11:28 Assessment and Plan *Assessment and plan (1) Lumbar radiculopathy: Status: Acute Category: Medical Code(s): M54.16 - Radiculopathy, lumbar region (2) Degenerative disc disease, lumbar: Status: Acute Category: Medical Code(s): M51.36 - Other intervertebral disc degeneration, lumbar region (3) Chronic pain syndrome: Status: Acute Category: Medical Code(s): G89.4 - Chronic pain syndrome (4) Status post lumbar spinal fusion: Status: Acute Category: Surgical Code(s): Z98.1 - Arthrodesis status Plan I will refill the patient's gabapentin and [place] and provide a 1 month supply of this medication. Patient will return to clinic for his intrathecal pain pump trial. Risks and benefits of the medication have been explained in detail to the patient. The patient does understand the risk of dependence on the medication when given over a prolonged period. Patient has been advised of risks of oversedation with the prescribed medication. Narcan has been offered to the paitent in the event of oversedation. Patient has been advised that a family member should also be educated regarding administration of Narcan. The patient has been advised to consult with his/her primary care provider and pharmacist regarding drug-drug interaction of medications currently prescribed. Patient has been prescribed a controlled substance after being counseled on the medication, medication safety, and possible side effects. Opioid contract was reviewed and signed by the patient, and that they have agreed to all of the terms set forth by our compliance program. Patient has been instructed to contact the clinic with any concerns before the next appointment. Dr. Lombardi has reviewed this note and agrees with this plan of care. This note was dictated using voice recognition software and make contain errors or omissions.
== END 2023-12-27 23:59 | disposition home or self-care (01) ==
PROVIDERS: Visit Provider Nurse Practitioner Family
DX: M54.16 Radiculopathy, lumbar region (principal); M51.36 Other intervertebral disc degeneration, lumbar region; G89.4 Chronic pain syndrome; Z98.1 Arthrodesis status
CPT/HCPCS: 99212; G0463

== ENCOUNTER 2024-01-19 08:15 | Day surgery (SDC) | payer MEDICARE, SELFPAY ==
[2024-01-19] VITALS (7 sets, daily range): BP systolic 132–203; BP diastolic 64–92; PULSE 65–91; RESP 16–18; TEMP 36.3–36.4; O2SAT 95–98; BMI 25.8
--- NOTE | 2024-01-19 09:02 | PC.NURSE ---
dr. herrera in room speaking with pt.
--- NOTE | 2024-01-19 09:30 | PC.NURSE ---
checked on pt at this time, states no needs at this time.
[2024-01-19] MEDS: FENTANYL 100MCG/2ML VIAL 100 MCG (10:01)
[2024-01-19] MEDS: LIDOCAINE 1% 30ML PF VIAL 30 ML (10:03)
[2024-01-19] MEDS: CEFAZOLIN SODIUM 1 GM in 0.9 % SODIUM CHLORIDE 50 ML IV (10:04)
--- NOTE | 2024-01-19 11:09 | PC.NURSE ---
pt sitting up in recliner, with feet propped up. Pt offered a drink, given apple juice per his request. Pt reports pain 1/10 at this time. States no other needs at this time.
--- NOTE | 2024-01-19 11:15 | PC.NURSE ---
Addendum entered by Jaylin Joshua RN 01/19/24 11:24: Dr. Lombardi states pt okay to be d/c home. Original Note: Dr. Lombardi in with pt checking on him.
--- NOTE | 2024-01-19 11:26 | PC.NURSE ---
Upon standing from chair pt denies numbness or tingling in legs. States pain is 0/10.
--- NOTE | 2024-01-19 14:15 | EXP.PAIN.PRO ---
Procedure Date: 01/19/24 Time: 14:15 Anesthesiologist:: Anand Lombardi MD Complications:: None Pre-procedure Diagnosis:: Degenerative disease of lumbar spine with lumbar radiculopathy symptoms Post-procedure Diagnosis:: Same Indications for Procedure:: This patient is a pleasant 78-year-old white male who we are treating for low back pain with lumbar radiculopathy symptoms. He has failed all previous conservative treatments including injections, oral medications, physical therapy and he is not a candidate for surgery. He has a successful psychological evaluation. Will do an intrathecal pump trial today. Procedure Details:: Pain pump trial Informed consent was obtained and the risk and benefits of the procedure was explained to the patient. The patient was taken to the procedure room and placed prone on the procedure table. Patient was prepped and draped in sterile fashion. C-arm fluoroscopy was used to view the lumbar spine. The skin and subcutaneous tissues were anesthetized using lidocaine. I placed a 18-gauge spinal needle into the L4-5 interspace and advanced until clear CSF was obtained. After this intrathecal catheter was inserted and advanced very easily to the L1 vertebral body. The needle was withdrawn. We were able to freely withdraw clear CSF through the catheter. We then injected intrathecal opioid single shot bolus of 25 mcg followed by saline and followed by the previous CSF that was withdrawn. The needle and catheter were then removed and a Band-Aid was placed. Patient tolerated the procedure well with no complications. We reevaluated the patient after 30 minutes to 1 hour. He was also reassessed by physical therapy. This patient was 90 to 100% better. By all indications this did seem to be a successful intrathecal pump trial. Plan and Disposition:: Will follow-up with this patient in 2 weeks. Will evaluate efficacy of this trial. If successful we will plan on permanent placement with intrathecal morphine 1 mg per mall to start at 100 mcg/day. Catheter tip will be at the T8 vertebral body.
== END 2024-01-19 11:26 | disposition home or self-care (01) ==
LOC: SC.PAINP 08:16
PROVIDERS: PCP Nurse Practitioner Family; Visit Provider Anesthesiology
DX: M51.16 Intervertebral disc disorders with radiculopathy, lumbar region (principal)
CPT/HCPCS: 62323; J0690; J3010

== ENCOUNTER 2024-01-25 09:45 | Outpatient (POV) | payer MEDICARE, SELFPAY ==
--- NOTE | 2024-01-25 09:53 | EXP.PAIN.SOA ---
[facility] Disclaimer: The information contained in this section may have been updated after the patient was seen, as this information can be updated by other users. Medical History HTN (hypertension) HLD (hyperlipidemia) Heart disease Surgical History Surgical history unknown Family History Other No significant family history Social History Smoking Status: Current every day smoker alcohol intake: never current occupational status: other Travel in the last 8 weeks: None housing: house PM Subjective & Objective Subjective Subjective:: Patient is a pleasant 78-year-old male who presents today for follow-up of his intrathecal pain pump trial on 01/19/2024. Today he rates his pain an 8 out of 10. Patient denies any new trauma or injury. He does state that he had 100% pain improvement lasting at least 6 hours. Patient states he did have overall improved function and was able to do much more and has been a significant change from even taking his oral medications. Patient does state he would like to proceed forward with the implant as soon as possible. Patient does feel like he is back to his baseline today with chronic pain throughout his overall back that does interfere with his everyday activities of daily living such as cooking or cleaning. Patient has tried and failed conservative treatment including oral medications, heat and ice, topicals, continued at home stretching exercise for longer than 12 weeks. Patient is prescribed gabapentin 600 mg twice a day and [place] 5 mg 3 times a day. He denies any side effects from this medication. His Fred has been reviewed and is appropriate. Review of Systems: General: No recent weight changes, no fever, no sleep disturbances Respiratory: No cough, no shortness of air, no recurring pulmonary infections Cardiovascular/peripheral vascular: No chest pain, no palpitations, no edema, no shortness of breath Gastrointestinal: No new onset incontinence, normal bowel movements reported Genitourinary: No new onset incontinence Musculoskeletal: Low back pain Psychiatric: [Normal mood/affect] Neurological: [Denies weakness in extremities], [denies balance issues] Pain at rest (0-10 scale): 8 Objective Objective:: Physical Exam: General: Alert and oriented x3, no acute distress, pleasant and cooperative Lungs: Respirations even and unlabored, symmetrical chest expansion Eyes: PERRL Musculoskeletal: Flexion and extension of lumbar [spine] somewhat guarded secondary to pain, [antalgic gait noted] Neurological: Speech clear, no gross sensory deficit Has patient had previous pain injection?: Yes Percent improvement in pain since last injection: 100% lasting 6+ hours Conservative treatment options previously tried: Home exercise plan Length of treatment: Longer than 12 weeks and Prescription medications Length of treatment: Longer than 12 weeks Meds Home Medications and Allergies Home Medications ?Medication ?Instructions ?Recorded ?Confirmed ?Type aspirin 81 mg tablet,delayed 81 mg PO ONCE 12/29/17 01/19/24 History release (Adult Low Dose Aspirin) atorvastatin 80 mg tablet 80 mg PO ONCE 12/29/17 01/19/24 History clopidogrel 75 mg tablet 75 mg PO DAILY Blood Thinner 08/16/23 01/19/24 History losartan 50 mg tablet 50 mg PO DAILY BLOOD PRESSURE 08/16/23 01/19/24 History metoprolol succinate 50 mg 50 mg PO DAILY BLOOD PRESSURE 08/16/23 01/19/24 History tablet,extended release 24 hr gabapentin 600 mg tablet 600 mg PO BID #60 tabs 12/27/23 01/19/24 Rx hydrocodone 5 mg-acetaminophen 325 1 tab PO TID PRN pain #90 tabs 12/27/23 01/19/24 Rx mg tablet New Prescriptions to Start Prescriptions: Allergies Allergy/AdvReac Type Severity Reaction Status Date / Time NO KNOWN ALLERGIES Allergy Uncoded 12/29/17 11:28 Assessment and Plan *Assessment and plan (1) Chronic pain syndrome: Status: Acute Category: Medical Code(s): G89.4 - Chronic pain syndrome (2) Degenerative disc disease, lumbar: Status: Acute Category: Medical Code(s): M51.36 - Other intervertebral disc degeneration, lumbar region Plan Patient did undergo a intrathecal pump trial with significant improvement in the patient would like to proceed forward with the intrathecal implant. He had 100% relief lasting more than 6 hours. Risk and benefits have been discussed and they still wish to continue with this plan of care. Patient has tried and failed conservative therapies. Patient does have a signed agreement that if we proceed forward with the intrathecal pump that there will be a decrease in oral pain medications if this is applicable with the overall goal 2-no oral opioids once the intrathecal pain pump is established. Prior to the intrathecal trial patient was on a fixed schedule with her medications and patient has been compliant with her medication regimen. We will submit for the intrathecal pain pump implant. Patient is currently on blood thinners and we will have to reach out again to Dr. Davila's office to confirm he can stop this medication prior to this injection. We will refill his medications of [place] and gabapentin today and provide A 1 month supply of these medications. Risks and benefits of the medication have been explained in detail to the patient. The patient does understand the risk of dependence on the medication when given over a prolonged period. Patient has been advised of risks of oversedation with the prescribed medication. Narcan has been offered to the paitent in the event of oversedation. Patient has been advised that a family member should also be educated regarding administration of Narcan. The patient has been advised to consult with his/her primary care provider and pharmacist regarding drug-drug interaction of medications currently prescribed. Patient has been prescribed a controlled substance after being counseled on the medication, medication safety, and possible side effects. Opioid contract was reviewed and signed by the patient, and that they have agreed to all of the terms set forth by our compliance program. Patient has been instructed to contact the clinic with any concerns before the next appointment. Dr. Lombardi has reviewed this note and agrees with this plan of care. This note was dictated using voice recognition software and make contain errors or omissions.
[2024-01-25 10:47] VITALS: BP 139/65; PULSE 76; RESP 18; O2SAT 94; BMI 25.8
== END 2024-01-25 23:59 | disposition home or self-care (01) ==
PROVIDERS: Visit Provider Nurse Practitioner Family
DX: G89.4 Chronic pain syndrome (principal); M51.36 Other intervertebral disc degeneration, lumbar region; F17.210 Nicotine dependence, cigarettes, uncomplicated; Z73.89 Other problems related to life management difficulty; Z79.02 Long term (current) use of antithrombotics/antiplatelets
CPT/HCPCS: 99212; G0463

== ENCOUNTER 2024-02-23 11:46 | Outpatient (CLI) | payer MEDICARE, SELFPAY ==
--- NOTE | 2024-02-23 12:22 | ECG_ITS ---
APPROVED REPORT Exam: Resting ECG HR:75 bpm ECG Measurements Heart Rate 75 AXES IN 198 P 69 QRSd 93 QRS 68 QT 368 T 68 QTc 396 Conclusion SINUS RHYTHM NORMAL ECG UNCONFIRMED REPORT Electronically signed by : Orlando Davis MD 02/25/2024 07:58:36
[2024-02-23 12:47] LABS: Basophils # 0.1 K/mm3 (0-0.2); Basophils % 0.8 % (0.1-2.0); Eosinophils # 0.2 K/mm3 (0.0-0.4); Eosinophils % 2.3 % (0.1-12.0); Hematocrit 45.2 % (42.0-52.0); Hemoglobin 14.5 g/dL (14.1-18.0); Lymphocytes # 2.8 K/mm3 (0.7-4.5); Lymphocytes % 30.7 % (10-50); Mean Corpuscular HGB Conc 32.1 g/dL (31.8-35.4); Mean Corpuscular Hemoglobin 30.6 pg (27.0-31.2); Mean Corpuscular Volume 95.2 fl (80-94); Mean Platelet Volume 7.8 fl (7.4-10.4); Monocytes # 0.4 K/mm3 (0.1-1.0); Monocytes % 4.1 % (1.7-9.3); Neutrophils # 5.8 K/mm3 (1.8-7.8); Neutrophils % 62.1 % (37.0-80.0); Platelet Count 279 K/mm3 (142-424); Red Blood Count 4.75 M/mm3 (4.60-6.20); Red Cell Distribution Width 13.8 % (11.5-17.5); White Blood Count 9.3 K/mm3 (4.8-10.8)
[2024-02-23 13:02] LABS: Anion Gap 11.2 mEq/L (5-15); Blood Urea Nitrogen 18 mg/dl (9-20); Calcium 9.5 mg/dl (8.4-10.2); Carbon Dioxide 24 mmol/L (22.0-30.0); Chloride 107 mmol/L (98-107); Creatinine Clearance Estimated 64 mL/min (50-200); Estimated Glomerular Filt Rate 131 ml/min (>60); GFR (African American) 158 ML/MIN (>60); Glucose 123 mg/dl (74-100); Potassium 4.2 mmoL/L (3.5-5.1); Sodium 138 mmol/L (136-145)
[2024-02-23 13:26] LABS: Amphetamine/Metha Screen,Urine Negative ng/ml (<1000)
[2024-02-23 13:27] LABS: Barbiturates Screen,Urine Negative ng/ml (<200); Benzodiazepines Screen,Urine Negative ng/ml (<200)
[2024-02-23 13:29] LABS: Cocaine Screen,Urine Negative ng/ml (<300); Methadone Screen,Urine Negative ng/ml (<300)
[2024-02-23 13:30] LABS: Opiate Screen,Urine Positive ng/ml (<300); Phencyclidine Screen,Urine Negative ng/ml (<25)
[2024-02-23 13:44] LABS: Cannabinoid Screen,Urine Negative ng/ml (<50)
== END 2024-02-23 23:59 | disposition home or self-care (01) ==
LOC: PREOP 11:49
PROVIDERS: PCP Nurse Practitioner Family; Visit Provider Anesthesiology
DX: Z01.812 Encounter for preprocedural laboratory examination (principal); Z01.810 Encounter for preprocedural cardiovascular examination; G89.4 Chronic pain syndrome; M51.16 Intervertebral disc disorders with radiculopathy, lumbar region
CPT/HCPCS: 80048; 80307; 85025; 93005

== ENCOUNTER 2024-03-01 09:24 | Day surgery (SDC) | payer MEDICARE, SELFPAY ==
[2024-02-23 12:27] VITALS: BMI 25.0
[2024-03-01 09:40] VITALS: BP 148/60; PULSE 71; RESP 18; TEMP 36.4; O2SAT 97
[2024-03-01] MEDS: LACTATED RINGERS 1000ML 1,000 ML 25 ML IV (09:49)
--- NOTE | 2024-03-01 09:58 | P.PNANES_ITS ---
[facility] Disclaimer: The information contained in this section may have been updated after the patient was seen, as this information can be updated by other users. Medical History Leukemia HTN (hypertension) HLD (hyperlipidemia) Heart disease Surgical History History of testicular surgery History of cholecystectomy History of back surgery History of coronary artery bypass graft Surgical history unknown Family History Other Family history of cancer Social History Smoking Status: Current every day smoker alcohol intake: never substance use type: denies use current occupational status: other Travel in the last 8 weeks: None housing: house [facility] Anesthesia Checklist Patient Identification Patient Identification: Arm Band, Family and Verbal (Name & ) Structural Data Admitted From: Home Planned Operative Procedure/s: Intrathecal pain pump placement Consent for Planned Operative Procedure(s) Verified: Yes Verified Documents: Surgical Consent and History and Physical NPO Status Verified Time NPO: 23:00 Chart Verification Results Verified: CBC, BMP, ECG and Chest Xray Additional verifications Patient : No Anesthesia Reactions: No Hx Blood Transfusions: Yes Cardiovascular Assessment Heart Sounds: S1 & S2 Pulse Rhythm: Irregular Peripheral Edema: No Airway Assessment Mallampati Score:: Class II C-Spine Mobility Assessed: Yes (FROM) TMJ Mobility Assessed: Yes Dentition: Edentulous Neurological Assessment Level of Consciousness: Awake, Alert, Appropriate and Follows Commands Hx Seizures: No Numbness or tingling in extremities: Yes (MEGAN LE) Anesthesia Plan Anesthesia Risk discussed: Yes Anesthesia Plan: Verified ASA Class: III Anesthesia Type: MAC
[2024-03-01] MEDS: VANCOMYCIN/WATER FOR INJ (PEG) 1.25 GM/250 ML PIGGYBACK IV ×2 (10:22→11:30)
[2024-03-01] MEDS: LIDOCAINE 1% W/EPI 1:100,000 20ML VIAL 40 ML (11:44)
[2024-03-01] MEDS: SODIUM CHLORIDE 0.9% 20ML VIAL 40 ML IV (11:44)
[2024-03-01] MEDS: GENTAMICIN 80 MG/2 ML VIAL (11:44)
[2024-03-01 12:16] VITALS: BP 165/65; PULSE 79; RESP 18; TEMP 36.6; O2SAT 100
[2024-03-01 12:26] VITALS: BP 141/69; PULSE 72; RESP 18; O2SAT 97
--- NOTE | 2024-03-01 12:31 | EXP.OP.NOTE ---
Date of procedure: 03/01/24 Pre-op Diagnosis:: Degenerative disease of lumbar spine with lumbar radiculopathy symptoms Post-op Diagnosis:: Same Procedure performed:: Permanent placement of intrathecal pain pump with tunneled intrathecal catheter and pain pump generator placement Surgeon:: Anand Lombardi MD JIG BUILDER HELPER:: Tanikadayana Ivy Anesthesia: MAC Estimated blood loss (mL): 5 Clinical Note:: This patient is a pleasant 78-year-old white male who we are treating for degenerative disease of lumbar spine with lumbar radiculopathy symptoms. He has increasing pain in his back radiating into both hips and both legs. He has failed all previous conservative treatments including injections, oral medications, physical therapy and is he not a surgical candidate. He has had a successful psychological evaluation and a successful intrathecal pump trial. He presents for permanent placement of his intrathecal pain pump today. Operative findings:: None Operative note:: Informed consent was obtained risk and benefits of the procedure were explained to the patient. The patient was taken to the operating room placed prone on the procedure table. He was prepped and draped in sterile fashion. C-arm fluoroscopy was used to view the right flank. [place] between the 12th rib and iliac crest the skin and subcutaneous tissues were anesthetized using lidocaine. I made incision dissected out the generator pocket. C-arm fluoroscopy was then used to view the lumbar spine. The skin and subcutaneous tissues adjacent to the L4-5 and L5-S1 interspace were anesthetized using lidocaine. I made an incision and dissected down to the lumbar paraspinous fascia. A 17-gauge spinal needle was inserted and advanced into the L4-5 interspace until clear CSF was obtained. After this intrathecal catheter was inserted and advanced very easily however we were unable to go beyond the T12 vertebral body. The catheter was left at the T12 vertebral body. It was in good position was midline and posterior. The stylet of the catheter and the needle withdrawn. The catheter is secured to the fascia with an anchor device and 2-0 Prolene. I filled the pump with 20 mL of intrathecal morphine 1 mg/mL. I tunneled the catheter from the back to the pump pocket and attached catheter to the pump. We were able to freely withdraw clear CSF through the sideport. The pump was then placed in the pocket with an antibiotic pouch. Both incisions were then closed with 2-0 Vicryl followed by 4-0 nylon and jose. The patient was placed in an abdominal binder and taken recovery in stable condition. The patient tolerated the procedure well with no complications. Pump was interrogated and started at 150 mcg/day of intrathecal morphine. Patient was discharged neurologically intact with good relief of pain symptoms. Pain and disposition will follow-up with this patient in 1 week for wound check and reprogramming. Will follow-up in 2 to 3 weeks for suture and staple removal Condition: stable Disposition: PACU Complications:: None
[2024-03-01 12:36] VITALS: BP 138/72; PULSE 63; RESP 16; O2SAT 95
[2024-03-01 12:43] VITALS: BP 135/74; PULSE 68; RESP 16; O2SAT 96
== END 2024-03-01 12:50 | disposition home or self-care (01) ==
PROVIDERS: PCP Nurse Practitioner Family; Visit Provider Anesthesiology
DX: G89.4 Chronic pain syndrome (principal); M51.16 Intervertebral disc disorders with radiculopathy, lumbar region
CPT/HCPCS: J1580; J7120

== ENCOUNTER 2024-03-01 20:06 | Emergency (ER) | payer MEDICARE, SELFPAY ==
[2024-03-01 20:08] VITALS: BP 175/75; PULSE 81; RESP 18; TEMP 36.9; O2SAT 95; BMI 22.4
--- NOTE | 2024-03-01 20:26 | ED_ITS ---
Discharge Plan Disposition Patient Disposition: Home, Self-Care Prescriptions Prescriptions: New tamsulosin [Flomax] 0.4 mg capsule 0.4 mg PO DAILY 7 Days Qty: 7 0RF No Action atorvastatin 80 mg tablet 80 mg PO ONCE aspirin [Adult Low Dose Aspirin] 81 mg tablet,delayed release (DR/EC) 81 mg PO ONCE gabapentin 600 mg tablet 600 mg PO BID Qty: 60 0RF hydrocodone-acetaminophen 5-325 mg tablet 1 tab PO TID PRN (Reason: pain) Qty: 90 0RF gabapentin 600 mg tablet 600 mg PO BID Qty: 60 0RF losartan 50 mg tablet 50 mg PO DAILY Patient Comments: TAKE ONE TABLET BY MOUTH EVERY DAY metoprolol succinate 50 mg tablet extended release 24 hr 50 mg PO DAILY Patient Comments: TAKE 1 TABLET BY MOUTH DAILY clopidogrel 75 mg tablet 75 mg PO DAILY Patient Comments: TAKE 1 TABLET BY MOUTH DAILY lisinopril 10 mg tablet 10 mg PO DAILY sulfamethoxazole-trimethoprim [Bactrim DS] 800-160 mg tablet 1 tab PO BID 7 Days Qty: 14 0RF Referrals Follow up/Referrals: Yolande Nascimento APRN [Primary Care Provider] - See instructions Andrew Santos MD [Staff Physician] - See instructions Activity Restrictions/Add. Instructions Additional Instructions/Restrictions: Please follow-up with our urologist on Monday or your primary care doctor in 5 to 7 days for a voiding trial and to have your catheter removed. Clinical Impressions Clinical Impression: Postoperative urinary retention Instructions Patient Instructions: DI for Urinary Tract Infection (UTI), DI for Urinary Tract Infection in Children Print Language Print Language: Turkmen Discharge ED Provider: Eugene Oconnor General Adult HPI General Chief complaint: Urogenital-Male Stated complaint: Unable to pee since 222902/29/24 Time Seen by Provider: 03/01/24 20:11 Mode of Arrival: Wheelchair Source of Information: Patient Limitations: No Limitations Description of Symptoms (Recalled from ER Triage Doc. by RN): Pt to ED via wheelchair with lower abd pain and unable to urinate since 2229 last night. Pt reports he had surgery today to have a pain pump placed by Dr Lombardi History of Present Illness HPI narrative: Patient is a 78-year-old male present today with urinary retention. States he has not urinated since yesterday evening. Had a pain pump placed by Dr. Lombardi earlier this morning. He has been unable to urinate the rest of the day. States he does have suprapubic discomfort no significant back pain has had a proportion to what he had the past. He is on Plavix but has not had any Plavix in over a week nor his aspirin. He is not on any further anticoagulants. Denies any saddle anesthesia lower extremity weakness paralysis or any other neurologic complaints. Related Data Home Medications ?Medication ?Instructions ?Recorded ?Confirmed aspirin 81 mg tablet,delayed 81 mg PO ONCE 12/29/17 03/01/24 release (Adult Low Dose Aspirin) atorvastatin 80 mg tablet 80 mg PO ONCE 12/29/17 03/01/24 clopidogrel 75 mg tablet 75 mg PO DAILY Blood Thinner 08/16/23 03/01/24 losartan 50 mg tablet 50 mg PO DAILY BLOOD PRESSURE 08/16/23 03/01/24 metoprolol succinate 50 mg 50 mg PO DAILY BLOOD PRESSURE 08/16/23 03/01/24 tablet,extended release 24 hr lisinopril 10 mg tablet 10 mg PO DAILY 02/23/24 03/01/24 Previous Rx's ?Medication ?Instructions ?Recorded gabapentin 600 mg tablet 600 mg PO BID #60 tabs 01/25/24 hydrocodone 5 mg-acetaminophen 325 1 tab PO TID PRN pain #90 tabs 01/25/24 mg tablet gabapentin 600 mg tablet 600 mg PO BID #60 tabs 02/26/24 sulfamethoxazole 800 1 tab PO BID 7 days #14 tabs 03/01/24 mg-trimethoprim 160 mg tablet (Bactrim DS) tamsulosin 0.4 mg capsule (Flomax) 0.4 mg PO DAILY 7 days #7 caps 03/01/24 Allergies Allergy/AdvReac Type Severity Reaction Status Date / Time NO KNOWN ALLERGIES Allergy Unknown Unknown Uncoded 03/01/24 09:39 allergy reaction [facility] Disclaimer: The information contained in this section may have been updated after the patient was seen, as this information can be updated by other users. Medical History (Updated 03/01/24 @ 20:23 by Eugene Oconnor MD) Leukemia HTN (hypertension) HLD (hyperlipidemia) Heart disease Surgical History History of testicular surgery History of cholecystectomy History of back surgery History of coronary artery bypass graft Surgical history unknown Family History Other Family history of cancer Social History (Updated 03/01/24 @ 09:59 by Tanika Ivy CRNA) Smoking Status: Unknown if ever smoked alcohol intake: never substance use type: denies use current occupational status: other Travel in the last 8 weeks: None housing: house ROS Obtained: Yes All systems reviewed & no additional complaints except as documented Physical Exam General General appearance: alert Respiratory Respiratory exam: Present normal lung sounds bilaterally Cardiovascular Cardiovascular exam: Present regular rate Abdominal Exam Abdominal exam: Present soft and tenderness (Suprapubic tenderness); Absent distention Neurological Exam Neurological exam: Present alert Medical Decision Making Fred Inquiry Pt receiving controlled substance: No Vital Signs: 03/01/24 20:08 03/01/24 21:31 03/01/24 22:00 Temperature 98.4 F Temperature Source Oral Pulse Rate 71 65 Pulse Rate [Left Radial] 81 Respiratory Rate 18 Blood Pressure 131/78 153/74 H Blood Pressure [Right Arm] 175/75 H Blood Pressure Mean [Right Arm] 108 Blood Pressure Source [Right Arm] Automatic Cuff Blood Pressure Position [Right Arm] Sitting 02 Sat by Pulse Oximetry 95 96 96 Oxygen Delivery Method Room Air Lab Data Lab results reviewed: Yes I reviewed the patient's lab results. Lab Results 03/01/24 20:53: Urine Color Yellow, Urine Appearance Clear, Urine pH 6.0, Ur Specific [place] >= 1.030, Urine Protein Negative, Urine Glucose (UA) Negative, Urine Ketones Negative, Urine Blood 2+ A, Urine Nitrate Negative, Urine Bilirubin Negative, Urine Urobilinogen 0.2, Ur Leukocyte Esterase Negative, Urine RBC 10-20, Urine WBC 3-5, Ur Squamous Epith Cells 5-10, Urine Bacteria 1+, Urine Mucus 3+ 03/01/24 21:32: WBC 11.4 H, RBC 4.12 L, Hgb 12.5 L, Hct 39.3 L, MCV 95.5 H, MCH 30.3, MCHC 31.7 L, RDW 13.9, Plt Count 202, MPV 8.9, Neut % (Auto) 65.8, Lymph % (Auto) 25.8, [place] % (Auto) 5.1, Eos % (Auto) 2.7, Baso % (Auto) 0.6, Neut # (Auto) 7.5, Lymph # (Auto) 3.0, [place] # (Auto) 0.6, Eos # (Auto) 0.3, Baso # (Auto) 0.1, Sodium 135 L, Potassium 3.8, Chloride 106, Carbon Dioxide 24, Anion Gap 8.8, BUN 15, Creatinine 0.60 L, Estimated Creat Clear 65, Estimated GFR 131, Est GFR ( Amer) 158, Glucose 100, Calcium 8.3 L 03/01/24 21:32 03/01/24 21:32 Orders (Tests/Meds): ED MEDICATIONS Discontinued Medications Generic Name Dose Route Start Last Admin Trade Name Freq PRN Reason Stop Dose Admin Lidocaine HCl 1 ml 03/01/24 20:26 03/01/24 20:28 Lidocaine 2% Urojet 10ml TP 03/01/24 20:27 1 ml ONCE ONE Administration ORDERS Category Date Time Status POCUS Point of Care (ER Only) Stat Exams 03/01/24 20:11 Completed BMP [Basic Metabolic Panel] Stat Lab 03/01/24 21:32 Completed CBC w/Auto Diff [Complete Blood Count Auto Diff] Stat Lab 03/01/24 21:32 Completed UA [Urinalysis and Microscopic] Stat Lab 03/01/24 20:53 Completed Medical Decision Narrative: Patient is a 78-year-old presenting today with postoperative urinary retention following a recent pain pump insertion this morning. Most likely this is associated with the medication is being administered causing some acute urinary retention. Bedside ultrasound did in fact show that there was urine without evidence of enlarged prostate or bilateral hydronephrosis. Robert catheter will need to be placed and he will need a voiding trial. Remainder of his neurologic exam is normal without evidence of [employer] compression although that remains on the differential given the recent spinal surgery. He has been on Plavix it is extremely unlikely after a week of being off that this is an epidural hematoma especially without any other neurologic symptoms. Epidural abscess certainly still in the differential as well but will not proceed with an MRI. Renal insufficiency is unlikely given the amount of urine that he has produced but will get a BMP and urinalysis and reassess. Reassessment 1101 patient had over a liter out feeling much better Robert catheter anchored and he was given a leg bag. He was initiated on Flomax. Advised to follow-up with a urologist or primary care doctor. Labs otherwise unremarkable patient discharged in stable improved condition. Return precautions emphasized. Procedures Miscellaneous Procedure Procedure Performed: Limited renal ultrasound Indication: A focused ultrasound of the kidneys was performed to evaluate for hydronephrosis and nephrolithiasis. The ultrasound was performed with the following indications, as noted in the H&P: Urinary tension Identified structures: Bilateral kidneys and bladder Findings: Full bladder without evidence of bilateral hydronephrosis Impression: Presence of significant urine in the bladder without evidence of enlarged prostate mass or bilateral hydronephrosis Images were saved to permanent archive The study was technically adequate CPT: 96425-63 This study was performed by me, and I personally interpreted all images/videos. Based on my clinical judgement, these images were added and did not necessitate further imaging. Critical Care Critical Care Time Critical Care Time: No
[2024-03-01] MEDS: LIDOCAINE 2% UROJET 10ML TP (20:28)
[2024-03-01 21:10] LABS: Microscopic, Urine URINE MICROSCOPIC (MICROSCOPIC)
[2024-03-01 21:13] LABS: Appearance,Urine CLEAR (Clear); Bilirubin,Urine Negative (Negative); Blood, Urine 2+ (Negative); Color,Urine YELLOW (Yellow); Glucose,Urine (UA) Negative (Negative); Ketones,Urine Negative (Negative); Leukocyte Esterase,Urine Negative (Negative); Nitrate,Urine Negative (Negative); Protein,Urine Negative (Negative); Specific Gravity, Urine >= 1.030 (1.005-1.030); Urobilinogen,Urine 0.2 EU/dl (0.2)
[2024-03-01 21:31] VITALS: BP 131/78; PULSE 71; O2SAT 96
[2024-03-01 21:39] LABS: Bacteria,Urine 1+ /lpf
[2024-03-01 21:40] LABS: Mucus,Urine 3+ /lpf
[2024-03-01 22:00] VITALS: BP 153/74; PULSE 65; O2SAT 96
[2024-03-01 22:46] LABS: Chloride 106 mmol/L (98-107); Potassium 3.8 mmoL/L (3.5-5.1); Sodium 135 mmol/L (136-145)
[2024-03-01 22:49] LABS: Anion Gap 8.8 mEq/L (5-15); Blood Urea Nitrogen 15 mg/dl (9-20); Carbon Dioxide 24 mmol/L (22.0-30.0); Creatinine Clearance Estimated 65 mL/min (50-200); Estimated Glomerular Filt Rate 131 ml/min (>60); GFR (African American) 158 ML/MIN (>60)
[2024-03-01 22:50] LABS: Basophils # 0.1 K/mm3 (0-0.2); Basophils % 0.6 % (0.1-2.0); Calcium 8.3 mg/dl (8.4-10.2); Eosinophils # 0.3 K/mm3 (0.0-0.4); Eosinophils % 2.7 % (0.1-12.0); Glucose 100 mg/dl (74-100); Hematocrit 39.3 % (42.0-52.0); Hemoglobin 12.5 g/dL (14.1-18.0); Lymphocytes % 25.8 % (10-50); Mean Corpuscular HGB Conc 31.7 g/dL (31.8-35.4); Mean Corpuscular Hemoglobin 30.3 pg (27.0-31.2); Mean Corpuscular Volume 95.5 fl (80-94); Mean Platelet Volume 8.9 fl (7.4-10.4); Monocytes # 0.6 K/mm3 (0.1-1.0); Monocytes % 5.1 % (1.7-9.3); Neutrophils # 7.5 K/mm3 (1.8-7.8); Neutrophils % 65.8 % (37.0-80.0); Platelet Count 202 K/mm3 (142-424); Red Blood Count 4.12 M/mm3 (4.60-6.20); Red Cell Distribution Width 13.9 % (11.5-17.5); White Blood Count 11.4 K/mm3 (4.8-10.8)
[2024-03-01 23:10] VITALS: BP 158/84; PULSE 73; RESP 18; TEMP 36.8; O2SAT 96
== END 2024-03-01 23:18 | disposition home or self-care (01) ==
PROVIDERS: Emergency Provider Student in an Organized Health Care Education/Training Program; PCP Nurse Practitioner Family
DX: N99.89 Other postprocedural complications and disorders of genitourinary system (principal); R33.9 Retention of urine, unspecified; R10.30 Lower abdominal pain, unspecified; I11.9 Hypertensive heart disease without heart failure; E78.5 Hyperlipidemia, unspecified; C95.90 Leukemia, unspecified not having achieved remission; Y83.1 Surgical operation with implant of artificial internal device as the cause of abnormal reaction of the patient, or of later complication, without mention of misadventure at the time of the procedure
CPT/HCPCS: 62350; 62362; 51702; 80048; 81001; 85025; 96374; 99284; 99285; C1755; C1772; J1580; J3010; J7120; S0028

== ENCOUNTER 2024-03-07 10:55 | Outpatient (POV) | payer MEDICARE, SELFPAY ==
--- NOTE | 2024-03-07 11:27 | A.OFFVIS_ITS ---
[facility] Disclaimer: The information contained in this section may have been updated after the patient was seen, as this information can be updated by other users. Medical History (Updated 03/01/24 @ 20:23 by Euegne Oconnor MD) Leukemia HTN (hypertension) HLD (hyperlipidemia) Heart disease Surgical History History of testicular surgery History of cholecystectomy History of back surgery History of coronary artery bypass graft Surgical history unknown Family History Other Family history of cancer Social History (Updated 03/01/24 @ 09:59 by Tanika Ivy CRNA) Smoking Status: Unknown if ever smoked alcohol intake: never substance use type: denies use current occupational status: other Travel in the last 8 weeks: None housing: house PM Subjective & Objective Subjective Subjective:: Patient is a pleasant 78-year-old male who presents today for 1 week follow-up of his intrathecal pain pump placement on 03/01/2024. Patient rates his pain today a 3 out of 10. He states overall he is doing well with this device and denies any side effects. He does state initially after surgery he did have some urinary retention and had to keep a catheter in place for about 4 days. He does state that all of this has resolved and he is doing much better. Patient does state he will occasionally still have some leg pains but it is much more manageable now that his overall back pain is doing so much better. He is currently managed with morphine 1 mg/mL with a daily dose of 0.1499 mg/day. He states that overall he feels like the dosage is working and he does not need any adjustment. Patient is currently managed with gabapentin 600 mg twice a day. His Rfed has been reviewed and is appropriate. Review of Systems: General: No recent weight changes, no fever, no sleep disturbances Respiratory: No cough, no shortness of air, no recurring pulmonary infections Cardiovascular/peripheral vascular: No chest pain, no palpitations, no edema, no shortness of breath Gastrointestinal: No new onset incontinence, normal bowel movements reported Genitourinary: No new onset incontinence Musculoskeletal: Low back pain, leg pain Psychiatric: [Normal mood/affect] Neurological: [Denies weakness in extremities], [denies balance issues] Pain at rest (0-10 scale): 3 Objective Objective:: Physical Exam: General: Alert and oriented x3, no acute distress, pleasant and cooperative Lungs: Respirations even and unlabored, symmetrical chest expansion Eyes: PERRL Musculoskeletal: Flexion and extension of lumbar [spine] somewhat guarded secondary to pain, [antalgic gait noted] Neurological: Speech clear, no gross sensory deficit Has patient had previous pain injection?: No Conservative treatment options previously tried: Home exercise plan Length of treatment: Longer than 6 weeks Meds Home Medications and Allergies Home Medications ?Medication ?Instructions ?Recorded ?Confirmed ?Type aspirin 81 mg tablet,delayed 81 mg PO ONCE 12/29/17 03/01/24 History release (Adult Low Dose Aspirin) atorvastatin 80 mg tablet 80 mg PO ONCE 12/29/17 03/01/24 History clopidogrel 75 mg tablet 75 mg PO DAILY Blood Thinner 08/16/23 03/01/24 History losartan 50 mg tablet 50 mg PO DAILY BLOOD PRESSURE 08/16/23 03/01/24 History metoprolol succinate 50 mg 50 mg PO DAILY BLOOD PRESSURE 08/16/23 03/01/24 History tablet,extended release 24 hr gabapentin 600 mg tablet 600 mg PO BID #60 tabs 01/25/24 03/01/24 Rx hydrocodone 5 mg-acetaminophen 325 1 tab PO TID PRN pain #90 tabs 01/25/24 03/01/24 Rx mg tablet lisinopril 10 mg tablet 10 mg PO DAILY 02/23/24 03/01/24 History gabapentin 600 mg tablet 600 mg PO BID #60 tabs 02/26/24 03/01/24 Rx sulfamethoxazole 800 1 tab PO BID 7 days #14 tabs 03/01/24 Rx mg-trimethoprim 160 mg tablet (Bactrim DS) tamsulosin 0.4 mg capsule (Flomax) 0.4 mg PO DAILY 7 days #7 caps 03/01/24 Rx New Prescriptions to Start Prescriptions: Allergies Allergy/AdvReac Type Severity Reaction Status Date / Time NO KNOWN ALLERGIES Allergy Unknown Unknown Uncoded 03/01/24 09:39 allergy reaction Assessment and Plan *Assessment and plan (1) Degenerative disc disease, lumbar: Status: Acute Category: Medical Code(s): M51.36 - Other intervertebral disc degeneration, lumbar region (2) Lumbar radiculopathy: Status: Acute Category: Medical Code(s): M54.16 - Radiculopathy, lumbar region Plan Patient was counseled to continue his postop restrictions the full 6 weeks. Patient's incisions are clean, dry, well-approximated with minimal erythema noted and sutures and jose intact. I did discuss with patient that we will plan on having him back in 2 weeks for suture and staple removal with skin glue and Steri-Strips to be applied. Patient has not had any additional urinary retention symptoms or edema following the initial surgery. I will refill the patient's gabapentin and provide a 1 month supply of this medication. Patient will return to clinic in 2 weeks for reevaluation of symptoms and plan of care. We will see the patient back in the clinic at the next intrathecal refill. Patient has been instructed to contact the clinic with any concerns before the next appointment. Dr. Lombardi has reviewed this note and agrees with this plan of care. This note was dictated using voice recognition software and make contain errors or omissions. -- It Is medically necessary for this patient to continue to have their intrathecal pump refilled at regular intervals. This patient had an intrathecal pain pump implanted after meeting criteria of chronic intractable pain for greater than 3 months and failing conservative treatments. Patient has committed and been compliant to the treatment plan and all planned follow up care. Since implantation of the intrathecal pain pump, the patient has had decreased pain and been more functional. Oral medications have been reduced including intake of oral opioids. Patient continues to do well with intrathecal therapy with decrease in pain symptoms and increase in functional status. Stopping intrathecal medications can lead to life threatening withdrawal, seizures, cardiac arrest, severe pain, and possible . Pumps that are not refilled at regular intervals can be damages and cause and need for replacement. We continually titrate dose and concentration to optimize pain relief and function. We are limited in concentration for certain drugs to safely deliver medications through the pump and stay within the recommendations from the Polyanalges[employer] Consensus Committee Guidelines. Depending on dose and concentration these pumps may need to be refilled sooner than 3 months as we titrate.
[2024-03-07 11:28] VITALS: BP 138/62; PULSE 76; RESP 18; O2SAT 94; BMI 25.8
== END 2024-03-07 23:59 | disposition home or self-care (01) ==
PROVIDERS: PCP Nurse Practitioner Family; Visit Provider Nurse Practitioner Family
DX: M51.16 Intervertebral disc disorders with radiculopathy, lumbar region (principal); Z97.8 Presence of other specified devices
CPT/HCPCS: 99212; G0463

== ENCOUNTER 2024-03-18 08:33 | Outpatient (POV) | payer MEDICARE, SELFPAY ==
--- NOTE | 2024-03-18 09:08 | P.PCN_ITS ---
Procedure Date: 03/18/24 Time: 08:46 Anesthesiologist:: Yolande Slade APRN Complications:: None Pre-procedure Diagnosis:: Degenerative disc disease of lumbar spine with lumbar radiculopathy symptoms Post-procedure Diagnosis:: Same Indications for Procedure:: Patient is a pleasant 78-year-old male who presents today for staple and suture removal and follow-up. Today he rates his pain an 8 out of 10. Patient does state that overall he has not had any new changes however he has started to experience worsening pain all along his tailbone that does radiate down into his bilateral lower extremities. Patient states the pain was terrible yesterday and that he did have significant difficulty performing activities of daily living such as cooking and cleaning or even simple ambulation. Patient is currently managed with morphine 1 mg/mL with a daily dose of 0.1499 mg/day. He denies any side effects from this medication. Patient is prescribed gabapentin 600 mg twice a day from our office. His Fred has been reviewed and is appropriate. Physical Exam: General: Alert and oriented x3, no acute distress, pleasant and cooperative Lungs: Respirations even and unlabored, symmetrical chest expansion Eyes: PERRL Musculoskeletal: Flexion and extension of lumbar [spine] somewhat guarded secondary to pain, [antalgic gait noted] point tenderness along the lower sacrum Neurological: Speech clear, no gross sensory deficit Skin: Incision sites are clean, dry, well-approximated with minimal erythema noted, sutures and jose intact Procedure Details:: Informed consent was obtained and the risk and benefits of the procedure were explained to the patient. Patient was taken to the procedure room where noninvasive monitoring was placed including noninvasive blood pressure cuff and pulse oximeter. Patient's pump was interrogated and was reprogrammed to morphine 0.1722 milligrams per day. The patient tolerated the procedure well with no complications. Plan and Disposition:: Patient is experiencing worsening pain throughout his low back as well as his sacrum with point tenderness and numbness and tingling into his bilateral lower extremities. I did discuss with the patient that he may benefit from a caudal epidural. Risk and benefits were discussed with the patient and he would like to wait and see if the pump adjustment makes a difference. I have counseled the patient that he can call and schedule this injection over the phone between now and his next appointment if needed. Patient has tried and failed conservative therapy including continued at home stretching exercise for longer than 12 weeks. Patient was able to have all of his jose removed today however we did leave his sutures intact. Patient was counseled to continue his postop restrictions the full 6 weeks. Patient will return to clinic in 2 weeks for suture and staple removal. Patient agrees with this plan of care. We will see the patient back in the clinic at the next intrathecal refill. Kelly malik has been instructed to contact the clinic with any concerns before the next appointment. Dr. Lombardi has reviewed this note and agrees with this plan of care. This note was dictated using voice recognition software and make contain errors or omissions. -- It Is medically necessary for this patient to continue to have their intrathecal pump refilled at regular intervals. This patient had an intrathecal pain pump implanted after meeting criteria of chronic intractable pain for greater than 3 months and failing conservative treatments. Patient has committed and been compliant to the treatment plan and all planned follow up care. Since implantation of the intrathecal pain pump, the patient has had decreased pain and been more functional. Oral medications have been reduced including intake of oral opioids. Patient continues to do well with intrathecal therapy with decrease in pain symptoms and increase in functional status. Stopping intrathecal medications can lead to life threatening withdrawal, seizures, cardiac arrest, severe pain, and possible . Pumps that are not refilled at regular intervals can be damages and cause and need for replacement. We continually titrate dose and concentration to optimize pain relief and function. We are limited in concentration for certain drugs to safely deliver medications through the pump and stay within the recommendations from the Polyanalgesic Consensus Committee Guidelines. Depending on dose and concentration these pumps may need to be refilled sooner than 3 months as we titrate.
[2024-03-18 09:22] VITALS: BP 137/65; PULSE 64; RESP 18; O2SAT 97; BMI 25.4
== END 2024-03-18 23:59 | disposition home or self-care (01) ==
PROVIDERS: PCP Nurse Practitioner Family; Visit Provider Nurse Practitioner Family
DX: M51.16 Intervertebral disc disorders with radiculopathy, lumbar region (principal); Z73.89 Other problems related to life management difficulty
CPT/HCPCS: 62368; 99213; G0463

== ENCOUNTER 2024-04-10 09:01 | Outpatient (POV) | payer MEDICARE, SELFPAY ==
--- NOTE | 2024-04-10 10:25 | EXP.PAIN.PRO ---
Procedure Date: 04/10/24 Time: 10:03 Anesthesiologist:: Yolande Slade APRN Complications:: None Pre-procedure Diagnosis:: Degenerative disc disease of lumbar spine with lumbar radiculopathy symptoms Post-procedure Diagnosis:: Same Indications for Procedure:: Patient is a pleasant 78-year-old male who presents today for suture removal and staple removal as well as intrathecal adjustment and reprogram. Today he rates his pain a 8 out of 10. Patient states that overall he is still doing well with his pump but feels like he could use additional adjustment. He denies any new falls or injury. Patient does feel like he has been able to do more activity however this is caused the worsening pain. He is currently managed with morphine 1 mg/mL with a daily dose of 0.1722 mg/day. Patient is also managed with gabapentin 600 mg twice a day. He denies any side effects from these medications. He is requesting refills. His Rfed has been reviewed and is appropriate. Physical Exam: General: Alert and oriented x3, no acute distress, pleasant and cooperative Lungs: Respirations even and unlabored, symmetrical chest expansion Eyes: PERRL Musculoskeletal: Flexion and extension of lumbar [spine] somewhat guarded secondary to pain, [antalgic gait noted] Neurological: Speech clear, no gross sensory deficit Skin: Incision sites are clean, dry, well-approximated with sutures and jose intact Procedure Details:: Informed consent was obtained and the risk and benefits of the procedure were explained to the patient. Patient was taken to the procedure room where noninvasive monitoring was placed including noninvasive blood pressure cuff and pulse oximeter. Patient's pump was interrogated and was reprogrammed to morphine 0.2066 mg/day. The patient tolerated the procedure well with no complications. Plan and Disposition:: Patient tolerated his intrathecal increase with no complications and was discharged neurologically intact. Patient will return to for his next intrathecal refill and reprogram. I will also refill the patient's gabapentin and provide a 3-month supply of this medication. We will see the patient back in the clinic at the next intrathecal refill. Patient has been instructed to contact the clinic with any concerns before the next appointment. Dr. Lombardi has reviewed this note and agrees with this plan of care. This note was dictated using voice recognition software and make contain errors or omissions. -- It Is medically necessary for this patient to continue to have their intrathecal pump refilled at regular intervals. This patient had an intrathecal pain pump implanted after meeting criteria of chronic intractable pain for greater than 3 months and failing conservative treatments. Patient has committed and been compliant to the treatment plan and all planned follow up care. Since implantation of the intrathecal pain pump, the patient has had decreased pain and been more functional. Oral medications have been reduced including intake of oral opioids. Patient continues to do well with intrathecal therapy with decrease in pain symptoms and increase in functional status. Stopping intrathecal medications can lead to life threatening withdrawal, seizures, cardiac arrest, severe pain, and possible . Pumps that are not refilled at regular intervals can be damages and cause and need for replacement. We continually titrate dose and concentration to optimize pain relief and function. We are limited in concentration for certain drugs to safely deliver medications through the pump and stay within the recommendations from the [employer] Consensus [employer] Guidelines. Depending on dose and concentration these pumps may need to be refilled sooner than 3 months as we titrate.
--- NOTE | 2024-04-10 10:26 | PC.NURSE ---
all sutures and jose removed from both surgical incisions. Skin glue and steri strips applied to both incisions. pt tolerated well.
== END 2024-04-10 23:59 | disposition home or self-care (01) ==
PROVIDERS: PCP Nurse Practitioner Family; Visit Provider Nurse Practitioner Family
DX: M51.16 Intervertebral disc disorders with radiculopathy, lumbar region (principal)
CPT/HCPCS: 62368; 99212; G0463

== ENCOUNTER 2024-05-28 08:13 | Day surgery (SDC) | payer MEDICARE, SELFPAY ==
[2024-05-28 08:41] VITALS: BP 130/55; PULSE 70; RESP 16; TEMP 36.4; O2SAT 93; BMI 25.8
[2024-05-28 08:54] VITALS: BP 138/52; PULSE 74; RESP 18; O2SAT 96
[2024-05-28 08:56] VITALS: BP 138/52; PULSE 74; RESP 18; O2SAT 96
[2024-05-28 09:05] VITALS: BP 130/55; PULSE 70; RESP 16; TEMP 36.4; O2SAT 93
--- NOTE | 2024-05-28 09:05 | P.PCN_ITS ---
Procedure Date: 05/28/24 Time: 08:50 Anesthesiologist:: Juan Alberto Kendrick CRNA Complications:: None Pre-procedure Diagnosis:: Degenerative disc lumbar spine multilevels. Lumbar radiculopathy. Lumbar postlaminectomy syndrome. Post-procedure Diagnosis:: Same. Indications for Procedure:: Patient is a pleasant 79-year-old male who comes our clinic today for intrathecal pain pump interrogation and refill. This is the the patient's first intrathecal pump refill. He is currently being managed with morphine sulfate 1 mg/mL at a rate of 0.2066 mg/day. Patient was seen in the office on 04/10/2024. He received a slight increase in pump rate at that time. Today he is requesting additional increase. He is reporting low lumbar back pain that he describes as constant, dull, aching. Right buttock and right leg radicular symptoms. He reports pain intensifies with activity. I will increase his pump rate by 20%. His new rate will be 0.2478 mg/day. Patient is awake alert [place] x 3. No acute distress. Flexion-extension lumbar spine somewhat guarded secondary to pain. Deep tendon reflexes upper and lower extremities normal. Motor strength upper and lower extremities normal. There is no gross sensory deficit. Gait is normal. Procedure Details:: Details of the procedure explained to the patient. The patient taken procedure room placed in the sitting position. They over the pumps cleansed using chlorhexidine as a cleansing solution. The pump was interrogated. The pump was accessed with ease using a 22-gauge inch and half needle. 2.5 mL of solution was withdrawn discarded appropriate. The pump was then filled with 20 cc solution containing morphine sulfate 1 mg/mL. Pump rate was increased by 20%. The new rate is 0.2478 mg/day. Patient tolerated procedure without difficulty. There is no complications. Plan and Disposition:: Patient was discharged without incident.
== END 2024-05-28 09:05 | disposition home or self-care (01) ==
PROVIDERS: PCP Nurse Practitioner Family; Visit Provider Nurse Anesthetist, Certified Registered
DX: M51.16 Intervertebral disc disorders with radiculopathy, lumbar region (principal); M96.1 Postlaminectomy syndrome, not elsewhere classified
CPT/HCPCS: 62370

== ENCOUNTER 2024-07-20 18:14 | Emergency (ER) | payer MEDICARE, SELFPAY ==
[2024-07-20 18:14] VITALS: BP 170/80; PULSE 62; RESP 20; TEMP 36.8; O2SAT 98; BMI 25.8
--- NOTE | 2024-07-20 18:22 | ECG_ITS ---
APPROVED REPORT Exam: Resting ECG HR:61 bpm ECG Measurements Heart Rate 61 AXES VA 162 P 25 QRSd 105 QRS 64 QT 443 T 76 QTc 445 Conclusion SINUS RHYTHM NORMAL ECG Electronically signed by : TOY POLANCO, 07/20/2024 23:40:29
--- NOTE | 2024-07-20 18:30 | XR_ITS ---
PROCEDURE INFORMATION: Exam: XR Chest Exam date and time: 07/20/2024 6:33 PM Age: 79 years old Clinical indication: Cough; Additional info: SOA TECHNIQUE: Imaging protocol: Radiologic exam of the chest. Views: 1 view. COMPARISON: No relevant prior studies available. FINDINGS: Lungs: Mild linear bibasilar opacities. Pleural spaces: No pleural effusion. No pneumothorax. Heart/Mediastinum: Postsurgical changes of CABG. No cardiomegaly.Calcified atherosclerotic changes of the thoracic aorta. Bones/joints: Median sternotomy. IMPRESSION: Mild linear bibasilar opacities favoring atelectasis/scarring, although infection can not be excluded.
--- NOTE | 2024-07-20 18:32 | ED_ITS ---
Discharge Plan Disposition Patient Disposition: Left Against Medical Advice Condition: Undetermined Prescriptions Prescriptions: No Action atorvastatin 80 mg tablet 80 mg PO ONCE aspirin [Adult Low Dose Aspirin] 81 mg tablet,delayed release (DR/EC) 81 mg PO ONCE tamsulosin [Flomax] 0.4 mg capsule 0.4 mg PO DAILY 7 Days Qty: 7 0RF losartan 50 mg tablet 50 mg PO DAILY Patient Comments: TAKE ONE TABLET BY MOUTH EVERY DAY metoprolol succinate 50 mg tablet extended release 24 hr 50 mg PO DAILY Patient Comments: TAKE 1 TABLET BY MOUTH DAILY clopidogrel 75 mg tablet 75 mg PO DAILY Patient Comments: TAKE 1 TABLET BY MOUTH DAILY lisinopril 10 mg tablet 10 mg PO DAILY gabapentin 600 mg tablet 600 mg PO BID Qty: 60 2RF Referrals Follow up/Referrals: Yolande Nascimento APRN [Primary Care Provider] - See instructions Clinical Impressions Clinical Impression: Left against medical advice Instructions Patient Instructions: DI for Syncope in Adults (Fainting), DI for Syncope in Children (Fainting) Print Language Print Language: Arabic Discharge ED Provider: Cameron Yoder HPI <Abigail Juarez APRN - Last Filed: 07/20/24 20:33> General Chief Complaint: Syncope Stated Complaint: VOMITING/DIZZINESS Time Seen by Provider: 07/20/24 18:23 Source of Information: Patient History of Present Illness HPI narrative: Patient is a 79-year-old male who presents to the ED with complaints of possible syncopal episode and mild shortness of breath. Patient states that he did not lose consciousness however he felt dizzy after rolling smokes at his home while same while simultaneously vaping with an unknown substance. Patient states that he has stress at home and feels anxiety, he smokes to treat his anxiety. He denies falling, denies hitting his head. Denies any additional injuries or complaints at this time. Related Data Home Medications ?Medication ?Instructions ?Recorded ?Confirmed aspirin 81 mg tablet,delayed 81 mg PO ONCE 12/29/17 05/28/24 release (Adult Low Dose Aspirin) atorvastatin 80 mg tablet 80 mg PO ONCE 12/29/17 05/28/24 clopidogrel 75 mg tablet 75 mg PO DAILY Blood Thinner 08/16/23 05/28/24 losartan 50 mg tablet 50 mg PO DAILY BLOOD PRESSURE 08/16/23 05/28/24 metoprolol succinate 50 mg 50 mg PO DAILY BLOOD PRESSURE 08/16/23 05/28/24 tablet,extended release 24 hr lisinopril 10 mg tablet 10 mg PO DAILY 02/23/24 05/28/24 Previous Rx's ?Medication ?Instructions ?Recorded tamsulosin 0.4 mg capsule (Flomax) 0.4 mg PO DAILY 7 days #7 caps 03/01/24 gabapentin 600 mg tablet 600 mg PO BID #60 tabs 04/10/24 Allergies Allergy/AdvReac Type Severity Reaction Status Date / Time NO KNOWN ALLERGIES Allergy Unknown Unknown Uncoded 03/01/24 09:39 allergy reaction [facility] <Abigail Juarez, SOLDERER [employer]URNACE - Last Filed: 07/20/24 20:33> [facility] Disclaimer: The information contained in this section may have been updated after the patient was seen, as this information can be updated by other users. Medical History (Updated 07/20/24 @ 19:58 by Wanda Gómez RN) Leukemia HTN (hypertension) HLD (hyperlipidemia) Heart disease Surgical History History of testicular surgery History of cholecystectomy History of back surgery History of coronary artery bypass graft Surgical history unknown Family History Other Family history of cancer Social History Smoking Status: Current every day smoker alcohol intake: never substance use type: denies use current occupational status: retired Travel in the last 8 weeks: None housing: house Have you lived/traveled outside [place] in past 30 days?: No Contact w/someone who lives/traveled outside US past 30 days?: No Exposure to someone with infectious disease in past 14 days?: No Do you have a fever (greater than 100.4 F or 38 C)?: No Have you tested positive for COVID-19: No Exposed to someone with COVID-19 in past 14 days?: No Do you have a sore throat?: No Do you have a cough?: No Do you have any weakness?: No Do you have any diarrhea?: No Are you experiencing any unusual bleeding?: No Do you have any muscle aches/pain?: No Do you have any abdominal pain?: No Are you experiencing loss of taste or smell?: No Other Medical History Have you received the Flu Vaccine for this season: No Have you received the Pneumonia Vaccine: No <Abigail Juarez APRN - Last Filed: 07/20/24 20:33> ROS Obtained: Yes Systems reviewed as appropriate & no additional complaints except as documented Physical Exam <Abigail Juarez APRN - Last Filed: 07/20/24 20:33> General General appearance: alert and in no apparent distress Head Head exam: atraumatic and normocephalic Eye Eye exam: Present normal appearance and PERRL; Absent nystagmus ENT ENT exam: Present normal exam Neck Neck exam: Present normal inspection Chest Chest inspection: Present normal inspection and symmetric chest wall rise; Absent tenderness Respiratory Respiratory exam: Present normal lung sounds bilaterally Cardiovascular Cardiovascular exam: Present regular rate Abdominal Exam Abdominal exam: Present soft and normal bowel sounds; Absent tenderness Extremities Exam Extremities exam: Present normal inspection and full ROM Back Exam Back exam: Present normal inspection and full ROM; Absent tenderness Neurological Exam Neurological exam: Present alert and oriented X3 Psychiatric Psychiatric exam: Present normal affect and normal mood Skin Skin exam: Present warm and dry HEART Score <Abigail Juarez APRN - Last Filed: 07/20/24 20:33> HEART Score HEART Score assessment performed?: Yes History (anamnesis): Moderately suspicious ECG: Non-specific disturbance Age: >65 years Risk factors: 3 or more risk factors Troponin: </= normal limit HEART Score: 6 <Cameron Yoder MD - Last Filed: 07/20/24 22:56> HEART Score HEART Score: 6 Critical Care <Abigail Juarez APRN - Last Filed: 07/20/24 20:33> Critical Care Time Critical Care Time: No Medical Decision Making <Abigail Juarez APRN - Last Filed: 07/20/24 20:33> Medical Records Medical records reviewed: Yes I reviewed the patient's medical records. Fred Inquiry Pt receiving controlled substance: No Vital Signs Vital Signs: 07/20/24 18:14 07/20/24 19:46 07/20/24 19:56 Temperature 98.3 F 97.9 F Temperature Source Oral Oral Pulse Rate 71 79 Pulse Rate [Right] 62 Respiratory Rate 20 12 18 Blood Pressure 164/75 H Blood Pressure [Right Arm] 170/80 H Blood Pressure Mean [Right Arm] 110 Blood Pressure Source Automatic Cuff Blood Pressure Position Supine 02 Sat by Pulse Oximetry 98 98 Oxygen Delivery Method Room Air Room Air Lab Data Labs: Lab Results 07/20/24 18:35: WBC 10.3, RBC 4.85, Hgb 14.4, Hct 42.9, MCV 88.5, MCH 29.7, MCHC 33.6, RDW 12.7, Plt Count 208, MPV 9.1, Neut % (Auto) 70.0, Lymph % (Auto) 22.3, Caroline % (Auto) 4.8, Eos % (Auto) 2.1, Baso % (Auto) 0.3, Neut # (Auto) 7.2, Lymph # (Auto) 2.3, Caroline # (Auto) 0.5, Eos # (Auto) 0.2, Baso # (Auto) 0.0, PT 9.5, I NR 0.85 L, APTT 21.5 L, D-Dimer 1.29 H, Sodium 139, Potassium 4.1, Chloride 103, Carbon Dioxide 25, Anion Gap 15.1 H, BUN 12, Creatinine 0.80, Estimated Creat Clear 62, Estimated GFR 93, Est GFR ( Amer) 113, Glucose 136 H, Calcium 9.5, Total Bilirubin 0.3, AST 39, ALT 24, Alkaline Phosphatase 93, Troponin I < 0.01, Total Protein 7.5, Albumin 5.1 H, Globulin 2.4, Albumin/Globulin Ratio 2.1 H, Plasma/Serum Alcohol < 10, HCV Ab RAGHAV w/Rflx PCR Qn Negative, HIV Ag/Ab Combo Qual Negative 07/20/24 18:35 07/20/24 18:35 Response Orders (Tests/Meds): ORDERS Category Date Time Status CXR --portable [XR chest portable] Stat Exams 07/20/24 18:30 Completed CBC w/Auto Diff [Complete Blood Count Auto Diff] Stat Lab 07/20/24 18:35 Completed CMP [Comprehensive Metabolic Panel] Stat Lab 07/20/24 18:35 Completed D-Dimer Stat Lab 07/20/24 18:35 Completed Ethyl Alcohol Stat Lab 07/20/24 18:35 Completed HIV Combo Stat Lab 07/20/24 18:35 Completed Hepatitis C Ab Qual. W/ RFX Stat Lab 07/20/24 18:35 Completed PT/PTT Stat Lab 07/20/24 18:35 Completed Trop I [Troponin I] Stat Lab 07/20/24 18:35 Completed MDM Narrative Medical Decision Narrative: In summary, patient is a 79-year-old male who presents to the emergency department for evaluation of concern for syncopal episode and shortness of breath. Patient admits that he was rolling smokes while simultaneously using an unknown vaping pen when symptoms started. Patient states he self treats his self diagnosed anxiety with smoking. Patient is hypertensive, afebrile upon arrival. He is alert, oriented and cooperative upon initial exam. Differential diagnosis includes ACS, pulmonary embolism, dissection, pneumothorax, pneumonia, infectious process, electrolyte abnormality, cardiac arrhythmia, among others. Initial workup will be conducted with hematologic labs, chest x-ray, and urine. Initial inventions include [crystalloid bolus, medications, p.o. challenge, etc.]. Initial workup reviewed by me. CBC unremarkable for any leukocytosis, stable H&H. CMP remarkable for anion gap 15.1, glucose 136, albumin 5.1. Troponin < 0.01. D-dimer elevated at 1.29, plan was to proceed with CT PE. Upon discussion with the patient about proceeding with CT PE, patient refuses adamantly. I advised patient that he could have a pulmonary embolism which could cause . He states he wants to leave the ED. Advised patient of the risk of leaving the ED without being discharged, advised him he would be leaving AGAINST MEDICAL ADVICE. He is alert and oriented, he is hemodynamically stable. I advised patient of the risk of leaving, including mortality. Patient verbalized understanding of this. He was hemodynamically stable and ambulatory upon leaving. <Cameron Yoder MD - Last Filed: 07/20/24 22:56> Vital Signs Vital Signs: 07/20/24 18:14 07/20/24 19:46 07/20/24 19:56 Temperature 98.3 F 97.9 F Temperature Source Oral Oral Pulse Rate 71 79 Pulse Rate [Right] 62 Respiratory Rate 20 12 18 Blood Pressure 164/75 H Blood Pressure [Right Arm] 170/80 H Blood Pressure Mean [Right Arm] 110 Blood Pressure Source Automatic Cuff Blood Pressure Position Supine 02 Sat by Pulse Oximetry 98 98 Oxygen Delivery Method Room Air Room Air Lab Data Labs: Lab Results 07/20/24 18:35: WBC 10.3, RBC 4.85, Hgb 14.4, Hct 42.9, MCV 88.5, MCH 29.7, MCHC 33.6, RDW 12.7, Plt Count 208, MPV 9.1, Neut % (Auto) 70.0, Lymph % (Auto) 22.3, Caroline % (Auto) 4.8, Eos % (Auto) 2.1, Baso % (Auto) 0.3, Neut # (Auto) 7.2, Lymph # (Auto) 2.3, Caroline # (Auto) 0.5, Eos # (Auto) 0.2, Baso # (Auto) 0.0, PT 9.5, I NR 0.85 L, APTT 21.5 L, D-Dimer 1.29 H, Sodium 139, Potassium 4.1, Chloride 103, Carbon Dioxide 25, Anion Gap 15.1 H, BUN 12, Creatinine 0.80, Estimated Creat Clear 62, Estimated GFR 93, Est GFR ( Amer) 113, Glucose 136 H, Calcium 9.5, Total Bilirubin 0.3, AST 39, ALT 24, Alkaline Phosphatase 93, Troponin I < 0.01, Total Protein 7.5, Albumin 5.1 H, Globulin 2.4, Albumin/Globulin Ratio 2.1 H, Plasma/Serum Alcohol < 10, HCV Ab RAGHAV w/Rflx PCR Qn Negative, HIV Ag/Ab Combo Qual Negative Response Orders (Tests/Meds): ORDERS Category Date Time Status CXR --portable [XR chest portable] Stat Exams 07/20/24 18:30 Completed CBC w/Auto Diff [Complete Blood Count Auto Diff] Stat Lab 07/20/24 18:35 Completed CMP [Comprehensive Metabolic Panel] Stat Lab 07/20/24 18:35 Completed D-Dimer Stat Lab 07/20/24 18:35 Completed Ethyl Alcohol Stat Lab 07/20/24 18:35 Completed HIV Combo Stat Lab 07/20/24 18:35 Completed Hepatitis C Ab Qual. W/ RFX Stat Lab 07/20/24 18:35 Completed PT/PTT Stat Lab 07/20/24 18:35 Completed Trop I [Troponin I] Stat Lab 07/20/24 18:35 Completed ECG Data Tracing #1: ECG Narrative: Independently interpreted by me rate 61, rhythm is regular, axis is normal, no ST elevation in anatomical contiguous leads, QTc 445. MDM Narrative Medical Decision Narrative: In summary, patient is a 79-year-old male who presents to the emergency department for evaluation of concern for syncopal episode and shortness of breath. Patient admits that he was rolling smokes while simultaneously using an unknown vaping pen when symptoms started. Patient states he self treats his self diagnosed anxiety with smoking. Patient is hypertensive, afebrile upon arrival. He is alert, oriented and cooperative upon initial exam. Differential diagnosis includes ACS, pulmonary embolism, dissection, pneumothorax, pneumonia, infectious process, electrolyte abnormality, cardiac arrhythmia, among others. Initial workup will be conducted with hematologic labs, chest x-ray, and urine. Initial workup reviewed by me. CBC unremarkable for any leukocytosis, stable H&H. CMP remarkable for anion gap 15.1, glucose 136, albumin 5.1. Troponin < 0.01. D-dimer elevated at 1.29, plan was to proceed with CT PE. Upon discussion with the patient about proceeding with CT PE, patient refuses adamantly. I advised patient that he could have a pulmonary embolism which could cause . He states he wants to leave the ED. Advised patient of the risk of leaving the ED without being discharged, advised him he would be leaving AGAINST MEDICAL ADVICE. He is alert and oriented, he is hemodynamically stable. I advised patient of the risk of leaving, including mortality. Patient verbalized understanding of this. He was hemodynamically stable and ambulatory upon leaving. I was consulted by the HARPREET, and we discussed the complexity of the problems being addressed. I approved the treatment and management plan for this patient's care in the emergency department, thus performing a substantive portion of the medical decision making. Cameron Yoder MD
[2024-07-20 18:44] LABS: Basophils % 0.3 % (0.1-2.0); Eosinophils # 0.2 K/mm3 (0.0-0.4); Eosinophils % 2.1 % (0.1-12.0); Hematocrit 42.9 % (42.0-52.0); Hemoglobin 14.4 g/dL (14.1-18.0); Lymphocytes # 2.3 K/mm3 (0.7-4.5); Lymphocytes % 22.3 % (10-50); Mean Corpuscular HGB Conc 33.6 g/dL (31.8-35.4); Mean Corpuscular Hemoglobin 29.7 pg (27.0-31.2); Mean Corpuscular Volume 88.5 fl (80-94); Mean Platelet Volume 9.1 fl (7.4-10.4); Monocytes # 0.5 K/mm3 (0.1-1.0); Monocytes % 4.8 % (1.7-9.3); Neutrophils # 7.2 K/mm3 (1.8-7.8); Platelet Count 208 K/mm3 (142-424); Red Blood Count 4.85 M/mm3 (4.60-6.20); Red Cell Distribution Width 12.7 % (11.5-17.5); White Blood Count 10.3 K/mm3 (4.8-10.8)
[2024-07-20 18:54] LABS: Alanine Aminotransferase 24 U/L (12-78); Albumin Level 5.1 g/dl (3.5-5.0); Albumin/Globulin Ratio 2.1 (1.1-1.8); Alkaline Phosphatase 93 U/L (38-126); Anion Gap 15.1 mEq/L (5-15); Aspartate Amino Transferase 39 U/L (17-59); Bilirubin,Total 0.3 mg/dl (0.2-1.3); Blood Urea Nitrogen 12 mg/dl (9-20); Calcium 9.5 mg/dl (8.4-10.2); Carbon Dioxide 25 mmol/L (22.0-30.0); Chloride 103 mmol/L (98-107); Creatinine Clearance Estimated 62 mL/min (50-200); Estimated Glomerular Filt Rate 93 ml/min (>60); GFR (African American) 113 ML/MIN (>60); Globulin 2.4 g/dL (1.3-3.2); Glucose 136 mg/dl (74-100); Potassium 4.1 mmoL/L (3.5-5.1); Sodium 139 mmol/L (136-145); Total Protein,Serum 7.5 g/dl (6.3-8.2)
[2024-07-20 18:55] LABS: Activated Partial Thrombo Time 21.5 seconds (22.5-28.5); INR 0.85 (0.9-1.1); Prothrombin Time 9.5 seconds (9.2-12.1)
[2024-07-20 18:56] LABS: Ethyl Alcohol < 10 mg/dl (0-10)
[2024-07-20 19:08] LABS: Troponin I < 0.01 ng/ml (0.00-0.034)
[2024-07-20 19:12] LABS: D-Dimer 1.29 ug/mL (0.0-0.5)
[2024-07-20 19:45] LABS: HIV Combo NEGATIVE (Negative)
[2024-07-20 19:46] VITALS: PULSE 71; RESP 12; O2SAT 98
[2024-07-20 19:54] LABS: Hepatitis C Ab Qual. W/ RFX NEGATIVE (Negative)
[2024-07-20 19:56] VITALS: BP 164/75; PULSE 79; RESP 18; TEMP 36.6; O2SAT 99
--- NOTE | 2024-07-20 19:57 | PC.NURSE ---
IV removed. Catheter tip intact. Bleeding controlled.
== END 2024-07-20 19:58 | disposition left against medical advice (07) ==
PROVIDERS: Nurse Practitioner; Emergency Provider Emergency Medicine; PCP Nurse Practitioner Family
DX: R06.02 Shortness of breath (principal); R55 Syncope and collapse; R42 Dizziness and giddiness; Z72.0 Tobacco use; Z53.29 Procedure and treatment not carried out because of patient's decision for other reasons
CPT/HCPCS: 71045; 80053; 80320; 84484; 85025; 85378; 85610; 85730; 86803; 87389; 93005; 99284; G0480

== ENCOUNTER 2024-07-26 09:10 | Day surgery (SDC) | payer MEDICARE, SELFPAY ==
[2024-07-26 09:14] VITALS: BP 145/63; PULSE 72; RESP 16; O2SAT 95; BMI 24.2
--- NOTE | 2024-07-26 09:22 | P.PCN_ITS ---
Procedure Date: 07/26/24 Time: 05:00 Anesthesiologist:: Yolande Slade APRN Complications:: None Pre-procedure Diagnosis:: Degenerative disc disease of lumbar spine with lumbar radiculopathy symptoms Post-procedure Diagnosis:: Same Indications for Procedure:: Patient is a pleasant 79-year-old male who presents today for intrathecal refill and reprogram. Today he rates his pain 5 out of 10. He denies any new trauma or injury. He does state that from her last appointment he did have his as well as his [id number] and so he is adjusting to this. Patient is currently managed with morphine 1 mg/mL with a daily dose of 0.2478 mg/day. He denies any side effects however is asking if we can increase. His Fred has been reviewed and is appropriate. Physical Exam: General: Alert and oriented x3, no acute distress, pleasant and cooperative Lungs: Respirations even and unlabored, symmetrical chest expansion Eyes: PERRL Musculoskeletal: Flexion and extension of lumbar [spine] somewhat guarded secondary to pain, [antalgic gait noted] Neurological: Speech clear, no gross sensory deficit Procedure Details:: Informed consent was obtained and the risk and benefits of the procedure were explained to the patient. The patient had noninvasive monitoring placed including noninvasive blood pressure cuff and pulse oximeter. Patient's pump was interrogated. The area over the pump was cleansed with chlorhexidine as a cleansing solution. In sterile fashion the pump was accessed with a 22-gauge needle. Approximately 4.9 mls of the pump solution was removed and discarded appropriately. The pump was then refilled with 20 mL's of morphine 1mg/ml. The needle was withdrawn and a bandage was placed over the puncture site. The infusion rate was reprogrammed and morphine 0.2724mg/day. The patient tolerated well with no complication. Plan and Disposition:: Patient tolerated the procedure well with no complications and was discharged neurologically intact. Patient will return to clinic on or before their next intrathecal refill date. We will see the patient back in the clinic at the next intrathecal refill. Patient has been instructed to contact the clinic with any concerns before the next appointment. Dr. Lombardi has reviewed this note and agrees with this plan of care. This note was dictated using voice recognition software and make contain errors or omissions. -- It Is medically necessary for this patient to continue to have their intrathecal pump refilled at regular intervals. This patient had an intrathecal pain pump implanted after meeting criteria of chronic intractable pain for greater than 3 months and failing conservative treatments. Patient has committed and been compliant to the treatment plan and all planned follow up care. Since i mplantation of the intrathecal pain pump, the patient has had decreased pain and been more functional. Oral medications have been reduced including intake of oral opioids. Patient continues to do well with intrathecal therapy with decrease in pain symptoms and increase in functional status. Stopping intrathecal medications can lead to life threatening withdrawal, seizures, cardiac arrest, severe pain, and possible . Pumps that are not refilled at regular intervals can be damages and cause and need for replacement. We continually titrate dose and concentration to optimize pain relief and function. We are limited in concentration for certain drugs to safely deliver medications through the pump and stay within the recommendations from the Polyanal[employer] Consensus [employer] Guidelines. Depending on dose and concentration these pumps may need to be refilled sooner than 3 months as we titrate. A UDS is needed to verify patient's compliance with our office pain contract. This is ordered based off specific treatments related to chronic pain with the potential to abuse certain medications.
[2024-07-26 09:26] VITALS: BP 115/66; PULSE 76; RESP 18; O2SAT 96
[2024-07-26 09:36] VITALS: BP 115/66; PULSE 76; RESP 18; O2SAT 96
[2024-07-26 09:47] VITALS: BP 145/63; PULSE 69; RESP 16; O2SAT 95
== END 2024-07-26 09:47 | disposition home or self-care (01) ==
PROVIDERS: PCP Nurse Practitioner Family; Visit Provider Nurse Practitioner Family
DX: M51.16 Intervertebral disc disorders with radiculopathy, lumbar region (principal)
CPT/HCPCS: 62370

== ENCOUNTER 2024-09-20 08:37 | Day surgery (SDC) | payer MEDICARE, SELFPAY ==
--- NOTE | 2024-09-20 08:44 | EXP.PAIN.PRO ---
Procedure Date: 09/20/24 Time: 08:55 Anesthesiologist:: Yolande Slade APRN Complications:: None Pre-procedure Diagnosis:: Degenerative disc disease of lumbar spine with lumbar radiculopathy symptoms, status post lumbar spinal fusion, chronic pain syndrome Post-procedure Diagnosis:: Same Indications for Procedure:: Patient is a pleasant 79-year-old male who presents today for intrathecal refill and reprogram. Today he rates his pain a 5 out of 10. He denies any new falls or injuries. He does state that he is has a lot more pain where he does have to do all the housework male that his is . Patient is asking for a small increase if possible.Patient does have intrathecal morphine 1 mg/mL with a daily dose of 0.2724 mg/day.Patient is also prescribed gabapentin 600 mg twice daily from our office. He denies any side effects. His Fred has been reviewed and is appropriate. Physical Exam: General: Alert and oriented x3, no acute distress, pleasant and cooperative Lungs: Respirations even and unlabored, symmetrical chest expansion Eyes: PERRL Musculoskeletal: Flexion and extension of lumbar [spine] somewhat guarded secondary to pain, [antalgic gait noted] Neurological: Speech clear, no gross sensory deficit Procedure Details:: informed consent was obtained and the risk and benefits of the procedure were explained to the patient. The patient had noninvasive monitoring placed including noninvasive blood pressure cuff and pulse oximeter. Patient's pump was interrogated. The area over the pump was cleansed with chlorhexidine as a cleansing solution. In sterile fashion the pump was accessed with a 22-gauge needle. Approximately 4.5 mls of the pump solution was removed and discarded appropriately. The pump was then refilled with 20 mL's of morphine 1 mg for him. The needle was withdrawn and a bandage was placed over the puncture site. The infusion rate was reprogrammed and increased 10% to morphine 0.2998 mg/day. The patient tolerated well with no complication. Plan and Disposition:: Patient tolerated the procedure well with no complications and was discharged neurologically intact. Patient will return to clinic on or before their next intrathecal refill date. We will see the patient back in the clinic at the next intrathecal refill. Patient has been instructed to contact the clinic with any concerns before the next appointment. Dr. Lombardi has reviewed this note and agrees with this plan of care. This note was dictated using voice recognition software and make contain errors or omissions. -- It Is medically necessary for this patient to continue to have their intrathecal pump refilled at regular intervals. This patient had an intrathecal pain pump implanted after meeting criteria of chronic intractable pain for greater than 3 months and failing conservative treatments. Patient has committed and been compliant to the treatment plan and all planned follow up care. Since implantation of the intrathecal pain pump, the patient has had decreased pain and been more functional. Oral medications have been reduced including intake of oral opioids. Patient continues to do well with intrathecal therapy with decrease in pain symptoms and increase in functional status. Stopping intrathecal medications can lead to life threatening withdrawal, seizures, cardiac arrest, severe pain, and possible . Pumps that are not refilled at regular intervals can be damages and cause and need for replacement. We continually titrate dose and concentration to optimize pain relief and function. We are limited in concentration for certain drugs to safely deliver medications through the pump and stay within the recommendations from the Polyanalges[employer] Consensus Committee Guidelines. Depending on dose and concentration these pumps may need to be refilled sooner than 3 months as we titrate. A UDS is needed to verify patient's compliance with our office pain contract. This is ordered based off specific treatments related to chronic pain with the potential to abuse certain medications.
[2024-09-20 08:47] VITALS: BP 129/56; PULSE 60; RESP 16; TEMP 36.6; O2SAT 95; BMI 25.0
[2024-09-20 08:51] VITALS: BP 150/68; PULSE 65; RESP 18; O2SAT 96
[2024-09-20 08:54] VITALS: BP 150/68; PULSE 66; RESP 18; O2SAT 97
[2024-09-20 09:25] VITALS: BP 103/60; PULSE 62; RESP 16; O2SAT 95
== END 2024-09-20 09:25 | disposition home or self-care (01) ==
PROVIDERS: PCP Nurse Practitioner Family; Visit Provider Nurse Practitioner Family
DX: M51.16 Intervertebral disc disorders with radiculopathy, lumbar region (principal); G89.4 Chronic pain syndrome; Z98.1 Arthrodesis status
CPT/HCPCS: 62370

== ENCOUNTER 2024-11-01 13:05 | Day surgery (SDC) | payer MEDICARE, SELFPAY ==
--- NOTE | 2024-11-01 13:11 | EXP.HP ---
History of Present Illness *Admission Date: 11/01/24 *Reason for visit:: Intrathecal refill; DDD *History of present illness: Degenerative disc disease [facility] Disclaimer: The information contained in this section may have been updated after the patient was seen, as this information can be updated by other users. Medical History Leukemia HTN (hypertension) HLD (hyperlipidemia) Heart disease Surgical History History of testicular surgery History of cholecystectomy History of back surgery History of coronary artery bypass graft Surgical history unknown Family History Other Family history of cancer Social History Smoking Status: Current every day smoker alcohol intake: never substance use type: denies use current occupational status: retired Travel in the last 8 weeks?: None housing: house Have you lived/traveled outside [place] in past 30 days?: No Contact w/someone who lives/traveled outside US past 30 days?: No Exposure to someone with infectious disease in past 14 days?: No Do you have a fever (greater than 100.4 F or 38 C)?: No Have you tested positive for COVID-19?: No Exposed to someone with COVID-19 in past 14 days?: No Do you have a sore throat?: No Do you have a cough?: No Do you have any weakness?: No Do you have any diarrhea?: No Are you experiencing any unusual bleeding?: No Do you have any muscle aches/pain?: No Do you have any abdominal pain?: No Are you experiencing loss of taste or smell?: No Other Medical History Have you received the Flu Vaccine for this season: No Have you received the Pneumonia Vaccine: No Review of Systems Review of Systems Review of systems:: pertinent systems reviewed and negative unless documented below Review of systems (narrative): Review of Systems: General: No recent weight changes, no fever, no sleep disturbances Respiratory: No cough, no shortness of air, no recurring pulmonary infections Cardiovascular/peripheral vascular: No chest pain, no palpitations, no edema, no shortness of breath Gastrointestinal: No new onset incontinence, normal bowel movements reported Genitourinary: No new onset incontinence Musculoskeletal: Degenerative disc disease Psychiatric: [Normal mood/affect] Neurological: [Denies weakness in extremities], [denies balance issues] Meds Home Medications and Allergies Home Medications ?Medication ?Instructions ?Recorded ?Confirmed ?Type aspirin 81 mg tablet,delayed 81 mg PO ONCE 12/29/17 09/20/24 History release (Adult Low Dose Aspirin) atorvastatin 80 mg tablet 80 mg PO ONCE 12/29/17 09/20/24 History clopidogrel 75 mg tablet 75 mg PO DAILY Blood Thinner 08/16/23 09/20/24 History losartan 50 mg tablet 50 mg PO DAILY BLOOD PRESSURE 08/16/23 09/20/24 History metoprolol succinate 50 mg 50 mg PO DAILY BLOOD PRESSURE 08/16/23 09/20/24 History tablet,extended release 24 hr lisinopril 10 mg tablet 10 mg PO DAILY 02/23/24 09/20/24 History tamsulosin 0.4 mg capsule (Flomax) 0.4 mg PO DAILY 7 days #7 caps 03/01/24 09/20/24 Rx gabapentin 600 mg tablet 600 mg PO BID #60 tabs 08/29/24 09/20/24 Rx New Prescriptions to Start Prescriptions: Allergies Allergy/AdvReac Type Severity Reaction Status Date / Time No Known Allergies Allergy Verified 07/26/24 09:14 Exam *Routine HEENT Exam Head: Present normocephalic and atraumatic Eye: Present PERRL ENT: Present mucous membranes moist *Routine Neck Exam Neck: Present supple *Routine Respiratory Exam Respiratory: Present CTA bilaterally *Routine Cardiovascular Exam Cardiovascular: Present RRR *Routine Abdominal Exam Abdominal: Present soft *Routine Rectal Exam Rectal:: deferred *Routine Genitalia Exam Genitalia:: normal male Routine Back/Spine/Pelvis Exam Back/Spine: Present pain with flexion *Routine Skin Exam Skin: Present intact and warm *Routine Neurological Exam Neurological: Present alert and oriented X3 Routine Psychiatric Exam Psychiatric: Present normal affect and normal thought process Assessment and Plan *Assessment and plan (1) Lumbar radiculopathy: Status: Acute Category: Medical Code(s): M54.16 - Radiculopathy, lumbar region (2) Degenerative disc disease, lumbar: Status: Acute Category: Medical Code(s): M51.369 - Other intervertebral disc degeneration, lumbar region without mention of lumbar back pain or lower extremity pain Plan Patient has been instructed to contact the clinic with any concerns before the next appointment. Dr. Lombardi has reviewed this note and agrees with this plan of care. This note was dictated using voice recognition software and make contain errors or omissions. All injections are used with Lidocaine, Bupivacaine and dexamethasone. Occasionally urine drug screen is needed to verify patient's compliance with our office pain contract. This is ordered based off specific treatments related to chronic pain with the potential to abuse certain medications.
--- NOTE | 2024-11-01 13:12 | EXP.PAIN.PRO ---
Procedure Date: 11/01/24 Time: 13:40 Anesthesiologist:: Yolande Slade APRN Complications:: None Pre-procedure Diagnosis:: Degenerative disc disease of lumbar spine with lumbar radiculopathy symptoms, chronic pain syndrome Post-procedure Diagnosis:: Same Indications for Procedure:: Patient is a pleasant 79-year-old male who presents today for intrathecal refill and reprogram. Today he rates his pain as 8 out of 10. He denies any new falls or injuries. He does state that he feels like he has had just overall more increased pain and would like an increase on his pump. Patient is currently managed with morphine 1 mg/mL with a daily dose of 0.2998 mg/day. He denies any side effects from this medication. Patient is also managed with gabapentin 600 mg twice a day from our office. His Fred has been reviewed and is appropriate. Physical Exam: General: Alert and oriented x3, no acute distress, pleasant and cooperative Lungs: Respirations even and unlabored, symmetrical chest expansion Eyes: PERRL Musculoskeletal: Flexion and extension of lumbar [spine] somewhat guarded secondary to pain, [antalgic gait noted] Neurological: Speech clear, no gross sensory deficit Procedure Details:: Informed consent was obtained and the risk and benefits of the procedure were explained to the patient. The patient had noninvasive monitoring placed including noninvasive blood pressure cuff and pulse oximeter. Patient's pump was interrogated. The area over the pump was cleansed with chlorhexidine as a cleansing solution. In sterile fashion the pump was accessed with a 22-gauge needle. Approximately 7 mls of the pump solution was removed and discarded appropriately. The pump was then refilled with 20 mL's of morphine 1 mg/mL. The needle was withdrawn and a bandage was placed over the puncture site. The infusion rate was reprogrammed and increased 15% to morphine 0.3443 mg/day. The patient tolerated well with no complication. Plan and Disposition:: Patient tolerated the procedure well with no complications and was discharged neurologically intact. I will also refill his gabapentin and change it to 3 times a day. Patient will return to clinic on or before their next intrathecal refill date. We will see the patient back in the clinic at the next intrathecal refill. Patient has been instructed to contact the clinic with any concerns before the next appointment. Dr. Lombardi has reviewed this note and agrees with this plan of care. This note was dictated using voice recognition software and make contain errors or omissions. -- It Is medically necessary for this patient to continue to have their intrathecal pump refilled at regular intervals. This patient had an intrathecal pain pump implanted after meeting criteria of chronic intractable pain for greater than 3 months and failing conservative treatments. Patient has committed and been compliant to the treatment plan and all planned follow up care. Since implantation of the intrathecal pain pump, the patient has had decreased pain and been more functional. Oral medications have been reduced including intake of oral opioids. Patient continues to do well with intrathecal therapy with decrease in pain symptoms and increase in functional status. Stopping intrathecal medications can lead to life threatening withdrawal, seizures, cardiac arrest, severe pain, and possible . Pumps that are not refilled at regular intervals can be damages and cause and need for replacement. We continually titrate dose and concentration to optimize pain relief and function. We are limited in concentration for certain drugs to safely deliver medications through the pump and stay within the recommendations from the Polyanalgesic Consensus Committee Guidelines. Depending on dose and concentration these pumps may need to be refilled sooner than 3 months as we titrate. A UDS is needed to verify patient's compliance with our office pain contract. This is ordered based off specific treatments related to chronic pain with the potential to abuse certain medications.
[2024-11-01 13:19] VITALS: BP 116/68; PULSE 65; RESP 16; O2SAT 98; BMI 25.8
[2024-11-01 13:36] VITALS: BP 125/60; PULSE 65; RESP 18; O2SAT 96
[2024-11-01 13:46] VITALS: BP 117/57; PULSE 63; RESP 16; O2SAT 96
== END 2024-11-01 13:46 | disposition home or self-care (01) ==
PROVIDERS: PCP Nurse Practitioner Family; Visit Provider Nurse Practitioner Family
DX: M51.16 Intervertebral disc disorders with radiculopathy, lumbar region (principal); G89.4 Chronic pain syndrome
CPT/HCPCS: 62370

== ENCOUNTER 2024-12-13 09:39 | Day surgery (SDC) | payer MEDICARE, SELFPAY ==
[2024-12-13 09:46] VITALS: BP 128/78; PULSE 68; RESP 18; O2SAT 96; BMI 25.8
--- NOTE | 2024-12-13 09:48 | EXP.PM.HP ---
History of Present Illness *Admission Date: 12/13/24 *Reason for visit:: Intrathecal refill; DDD *History of present illness: Same [facility] Disclaimer: The information contained in this section may have been updated after the patient was seen, as this information can be updated by other users. Medical History Leukemia HTN (hypertension) HLD (hyperlipidemia) Heart disease Surgical History History of testicular surgery History of cholecystectomy History of back surgery History of coronary artery bypass graft Surgical history unknown Family History Other Family history of cancer Social History Smoking Status: Current every day smoker alcohol intake: never substance use type: denies use current occupational status: retired Travel in the last 8 weeks?: None housing: house Have you lived/traveled outside US in past 30 days?: No Contact w/someone who lives/traveled outside US past 30 days?: No Exposure to someone with infectious disease in past 14 days?: No Do you have a fever (greater than 100.4 F or 38 C)?: No Have you tested positive for COVID-19?: No Exposed to someone with COVID-19 in past 14 days?: No Do you have a sore throat?: No Do you have a cough?: No Do you have any weakness?: No Do you have any diarrhea?: No Are you experiencing any unusual bleeding?: No Do you have any muscle aches/pain?: No Do you have any abdominal pain?: No Are you experiencing loss of taste or smell?: No Other Medical History Have you received the Flu Vaccine for this season: No Have you received the Pneumonia Vaccine: No Review of Systems Review of Systems Review of systems:: pertinent systems reviewed and negative unless documented below Review of systems (narrative): Review of Systems: General: No recent weight changes, no fever, no sleep disturbances Respiratory: No cough, no shortness of air, no recurring pulmonary infections Cardiovascular/peripheral vascular: No chest pain, no palpitations, no edema, no shortness of breath Gastrointestinal: No new onset incontinence, normal bowel movements reported Genitourinary: No new onset incontinence Musculoskeletal: Chronic back pain Psychiatric: [Normal mood/affect] Neurological: [Denies weakness in extremities], [denies balance issues] Meds Home Medications and Allergies Home Medications ?Medication ?Instructions ?Recorded ?Confirmed ?Type aspirin 81 mg tablet,delayed 81 mg PO ONCE 12/29/17 12/13/24 History release (Adult Low Dose Aspirin) atorvastatin 80 mg tablet 80 mg PO ONCE 12/29/17 12/13/24 History clopidogrel 75 mg tablet 75 mg PO DAILY Blood Thinner 08/16/23 12/13/24 History losartan 50 mg tablet 50 mg PO DAILY BLOOD PRESSURE 08/16/23 12/13/24 History metoprolol succinate 50 mg 50 mg PO DAILY BLOOD PRESSURE 08/16/23 12/13/24 History tablet,extended release 24 hr lisinopril 10 mg tablet 10 mg PO DAILY 02/23/24 12/13/24 History tamsulosin 0.4 mg capsule (Flomax) 0.4 mg PO DAILY 7 days #7 caps 03/01/24 12/13/24 Rx gabapentin 600 mg tablet 600 mg PO TID #90 tabs 11/01/24 12/13/24 Rx New Prescriptions to Start Prescriptions: Allergies Allergy/AdvReac Type Severity Reaction Status Date / Time No Known Allergies Allergy Verified 07/26/24 09:14 Exam Constitutional Constitutional: no acute distress *Routine HEENT Exam Head: Present normocephalic and atraumatic Eye: Present PERRL ENT: Present mucous membranes moist *Routine Neck Exam Neck: Present supple *Routine Respiratory Exam Respiratory: Present CTA bilaterally *Routine Cardiovascular Exam Cardiovascular: Present RRR *Routine Abdominal Exam Abdominal: Present soft *Routine Rectal Exam Rectal:: deferred *Routine Genitalia Exam Genitalia:: deferred Routine Back/Spine/Pelvis Exam Back/Spine: Present pain with flexion *Routine Skin Exam Skin: Present intact and warm *Routine Neurological Exam Neurological: Present alert and oriented X3 Routine Psychiatric Exam Psychiatric: Present normal affect and normal thought process Assessment and Plan *Assessment and plan (1) Lumbar radiculopathy: Status: Acute Category: Medical Code(s): M54.16 - Radiculopathy, lumbar region (2) Degenerative disc disease, lumbar: Status: Acute Category: Medical Code(s): M51.369 - Other intervertebral disc degeneration, lumbar region without mention of lumbar back pain or lower extremity pain Plan Patient has been instructed to contact the clinic with any concerns before the next appointment. Dr. Lombardi has reviewed this note and agrees with this plan of care. This note was dictated using voice recognition software and make contain errors or omissions. All injections are used with Lidocaine, Bupivacaine and dexamethasone. Occasionally urine drug screen is needed to verify patient's compliance with our office pain contract. This is ordered based off specific treatments related to chronic pain with the potential to abuse certain medications.
--- NOTE | 2024-12-13 09:59 | EXP.PAIN.PRO ---
Procedure Date: 12/13/24 Time: 10:08 Anesthesiologist:: Yolande Slade APRN Complications:: None Pre-procedure Diagnosis:: Degenerative disc disease of lumbar spine with lumbar radiculopathy symptoms, chronic pain syndrome Post-procedure Diagnosis:: Same Indications for Procedure:: Patient is a pleasant 79-year-old male who presents today for intrathecal refill and reprogram. Today he rates his pain a 6 out of 10. He denies any new falls or injuries. He does state that he is having a little bit more leg pain however his back is doing wonderful. Patient is also prescribed gabapentin 600 mg 3 times a day from our office. He is also managed with morphine 1 mg/mL with a daily dose of 0.3443 mg/day. He denies any side effects. His Fred has been reviewed and is appropriate. Physical Exam: General: Alert and oriented x3, no acute distress, pleasant and cooperative Lungs: Respirations even and unlabored, symmetrical chest expansion Eyes: PERRL Musculoskeletal: Flexion and extension of lumbar [spine] somewhat guarded secondary to pain, [antalgic gait noted] Neurological: Speech clear, no gross sensory deficit Procedure Details:: Informed consent was obtained and the risk and benefits of the procedure were explained to the patient. The patient had noninvasive monitoring placed including noninvasive blood pressure cuff and pulse oximeter. Patient's pump was interrogated. The area over the pump was cleansed with chlorhexidine as a cleansing solution. In sterile fashion the pump was accessed with a 22-gauge needle. Approximately 5.1 mls of the pump solution was removed and discarded appropriately. The pump was then refilled with 20 mL's of morphine 3 mg/mL. The needle was withdrawn and a bandage was placed over the puncture site. The infusion rate was reprogrammed and continued at morphine 0.344 mg/day. The patient tolerated well with no complication. Plan and Disposition:: Patient tolerated the procedure well with no complications and was discharged neurologically intact. Patient was counseled that we are changing his concentration today from morphine 1 mg/mL to morphine 3 mg/mL to give him longer between his pump refills. Patient was counseled that there will be a bridge bolus to get the old medicine to the new medicine at the end of the catheter tip. He acknowledges understanding. We will see him back at his next intrathecal refill. He did also state that the increased tablet of his gabapentin did help as well. Patient will return to clinic on or before their next intrathecal refill date. We will see the patient back in the clinic at the next intrathecal refill. Patient has been instructed to contact the clinic with any concerns before the next appointment. Dr. Lombardi has reviewed this note and agrees with this plan of care. This note was dictated using voice recognition software and make contain errors or omissions. -- It Is medically necessary for this patient to continue to have their intrathecal pump refilled at regular intervals. This patient had an intrathecal pain pump implanted after meeting criteria of chronic intractable pain for greater than 3 months and failing conservative treatments. Patient has committed and been compliant to the treatment plan and all planned follow up care. Since implantation of the intrathecal pain pump, the patient has had decreased pain and been more functional. Oral medications have been reduced including intake of oral opioids. Patient continues to do well with intrathecal therapy with decrease in pain symptoms and increase in functional status. Stopping intrathecal medications can lead to life threatening withdrawal, seizures, cardiac arrest, severe pain, and possible . Pumps that are not refilled at regular intervals can be damages and cause and need for replacement. We continually titrate dose and concentration to optimize pain relief and function. We are limited in concentration for certain drugs to safely deliver medications through the pump and stay within the recommendations from the Polyanalges[employer] Consensus Committee Guidelines. Depending on dose and concentration these pumps may need to be refilled sooner than 3 months as we titrate. A UDS is needed to verify patient's compliance with our office pain contract. This is ordered based off specific treatments related to chronic pain with the potential to abuse certain medications.
[2024-12-13 10:03] VITALS: BP 141/55; PULSE 60; RESP 18; O2SAT 96
[2024-12-13 10:22] VITALS: BP 111/60; PULSE 57; RESP 18; O2SAT 95
== END 2024-12-13 10:22 | disposition home or self-care (01) ==
PROVIDERS: PCP Nurse Practitioner Family; Visit Provider Nurse Practitioner Family
DX: Z45.1 Encounter for adjustment and management of infusion pump (principal); M51.16 Intervertebral disc disorders with radiculopathy, lumbar region; G89.4 Chronic pain syndrome; I11.9 Hypertensive heart disease without heart failure; E78.5 Hyperlipidemia, unspecified; F17.200 Nicotine dependence, unspecified, uncomplicated; C95.90 Leukemia, unspecified not having achieved remission; Z79.82 Long term (current) use of aspirin; Z79.891 Long term (current) use of opiate analgesic; Z79.899 Other long term (current) drug therapy
CPT/HCPCS: 95991

== ENCOUNTER 2025-03-14 10:28 | Outpatient (CLI) | payer MEDICARE, SELFPAY ==
--- OUTSIDE RECORDS SUMMARY | 2025-03-14 10:32 | XMS_ITS | Encounter Summary ---
[facility] Address [address] [place] [address] Care Team Providers Care Car Varnisher Name Role Phone Willow Craven URSZULA Primary Care Provider [phone] Encounter Details Date Type Department Care Team (Late st Contact Info) Description 05/31/2012 Conversion Encounter [facility] HISTORICAL CONV [address] [place] [address] Interface, See Report Social History Tobacco Use Types Packs/Day Years Used Date Smoking Tobacco: Never Assessed Sex and Gender Information Value Date Recorded Sex Assigned at Not on file Legal Sex Male 10:08 AM EDT Gender Identity Not on file Sexual Orientation Not on file documented as of this encounter H&P Notes * Interface, See Report - 05/31/2012 3:27 PM EST Andrew Breaux M.D. ' Sachi Alvarado M.D. ' Андрей Marrufo M.D. ' URSZULA Hernandez M.D. ' Darren Garcia M.D. ' Avril Jean Baptiste M.D. ' Adina Altamirano APRN [address] [facility], [email or web address] NEW PATIENT EVALUATION [place] : 1945 DATE OF VISIT: 05/31/2012 PROBLEMS: 1. History of myelogenous leukemia, still in remission. 2. Cerebrovascular accident. 3. History of a fungal abscesses, details incomplete. HISTORY: This is a 67-year-old white male who describes a diagnosis of leukemia that was apparently acute myelogenous leukemia in 2000. He describes induction chemotherapy at [facility]. I do not have records available at present, but this was presumed to be the standard 7 and 3 regimen using cytarabine an anthracycline. He had several different complications from this therapy which is not unusual. He describes mucositis, in particular, He went into remission and elected not to have any post remission therapy either with consolidation or maintenance. He had what was evidently a very complicated fungal infection. Following this he describes a perispinal abscess and evidently cerebral fungal abscess. He was treated with amphotericin and then with another antifungal. This was directed by Dr. Yanes and he received part of his therapy at [facility]. He has recovered well from that he does still have some back pain and he has had some knee problems. He has not had any anemia or other hematologic problems to his knowledge. He has been seeing Dr. Lopez regularly. He has not had any nose bleeding, gum bleeding, or unusual bruising. NEW PATIENT EVALUATION [place] : 1945 DATE OF VISIT: 05/31/2012 PAST MEDICAL HISTORY: 1. Cerebrovascular accident about two years ago. This evidently affected his speech as well as causing a syncopal episode or loss of consciousness. 2. He has had kidney stones 3. Arthritis including the right knee in particular. PAST SURGICAL HISTORY: 1. Cholecystectomy 2. Coronary artery bypass grafting in 1998 3. Back surgery in 1999. 4. Carotid surgery, 5. Hernia repair 6. Arthroscopy done in 2010. MEDICATIONS: His medications list is reviewed and includes 1. Aspirin 81 mg daily, 2. Lipitor 3. Toprol 4. Oxycodone for his pain. ALLERGIES: No known drug allergies. SOCIAL HISTORY: He lives at home with his . He does smoke cigarettes. He worked as a mechanical design engineer facilities. FAMILY HISTORY: Mother at 74 from colon cancer. Father at 55 from complications of Parkinson's disease. He is unaware of anyone in the family with any blood disorders. REVIEW OF SYSTEMS: The review of systems page was discussed with him and is included in the record. He had no new problems to discuss - he does have a joint pains, back pain as mentioned above. NEW PATIENT EVALUATION [place] : 1945 DATE OF VISIT: 05/31/2012 PHYSICAL EXAMINATION: GENERAL: He is a is comfortable -appearing adult male. HEENT: Sclerae are anicteric. Extraocular movements intact. Pupils equal, round, reactive to light. He is mostly edentulous. HEART: Regular rhythm and rate. LUNGS: No rub, crackles or wheezes. ABDOMEN: Soft without masses or organomegaly. In particular, I did not feel the spleen tip. EXTREMITIES: Without edema or cords. Joints had no erythema or effusion. SKIN: No rashes or purpura. NODES: I cannot feel any cervical, supraclavicular or axillary nodes. LABORATORY DATA: CBC done 04/10/12 at [facility] by Dr. Lopez showed a white count of 10.8, hemoglobin 15.5, platelets 227,000. He had a normal differential. IMPRESSION: 1. Acute myelogenous leukemia in complete remission. He appears to have sustained complete remission since his induction therapy. He does not show any evidence of any recent complications, in particular is not showing any hematologic complications. PLAN: 1. At this point he needs only routine follow-up. I will see him back in six months. I will check a CBC then. I did encourage him to follow up regularly with Dr. Lopez about his other health maintenance. Sachi Alvarado M.D.* RME/rxcmt Doc. ID [id number] Rev. #0 cc: Srikanth Lopez M.D.* Page 2 of 3 Page 1 of 3 Authenticated and Edited by SACHI ALVARADO M.D. On 06/14/12 5:31:34 PM documented in this encounter Plan of Treatment Not on file documented as of this encounter Visit Diagnoses Not on filedocumented in this encounter Care Teams Car Varnisher Relationship Specialty Start Date End Date Willow Craven APRN [address] [place] [address] PCP - General Family Medicine 05/05/22 documented as of this encounter
--- OUTSIDE RECORDS SUMMARY | 2025-03-14 10:32 | XMS_ITS | Clinical Summary ---
Author Organization [facility] Address [address] [place] [address] Care Team Providers Care Real Estate Investor Name Role Phone Willow Craven URSZULA Primary Care Provider [phone] Allergies No known active allergies Medications raNITIdine (ZANTAC) 150 MG tablet Take 150 mg by mouth Daily. Active oxyCODONE (ROXICODONE) 10 MG tablet TAKE 1 TO 1 & 1/2 TABLETS BY MOUTH EVERY 6 HOURS NEEDED FOR SEVERE ARTHRITIS PAIN 0 7 Active BRILINTA 90 MG tablet tablet TAKE 1 TABLET BY MOUTH TWICE DAILY 3 7 Active gabapentin (NEURONTIN) 400 MG capsuleIndicati ons:Chronic pain syndrome Take 1 capsule by mouth 3 (Three) Times a Day. 90 capsule 2 Active clopidogrel (PLAVIX) 75 MG tablet Take 1 tablet by mouth Daily. Was told by v block saw operator (notes on chart) to stop five days before surgery on 11-23-16 90 tablet 1 3 Active atorvastatin (LIPITOR) 80 MG tablet Take 1 tablet by mouth Daily. 90 tablet 1 3 Active metoprolol succinate XL (TOPROL-XL) 50 MG 24 hr tablet TAKE 1 TABLET BY MOUTH DAILY 90 tablet 4 Active Active Problems Problem Noted Date Diagnosed Date Status post lumbar laminectomy 12/29/2016 Lumbar disc herniation 11/28/2016 Family History Medical History Relation Name Comments Diabetes Brother Parkinsonism Father Cancer Mother Relation Name Status Comments Brother Father Mother Social History Tobacco Use Types Packs/Day Years Used Date Smoking Tobacco: Former Cigarettes 1 56 0 [birth year]/11/1961 - 10/11/2016 Smokeless Tobacco: Never Tobacco Cessation:Counseling Given: No Alcohol Use Standard Drinks/Week Comments No 0 (1 standard drink = 0.6 oz pur e alcohol) Abuse Screen Answer Date Recorded Unsafe at Home or Work/School Not on file Feels Threatened by Someone? Not on file 02/2023 Does Anyone Keep You from Co ntacting Others or Doint Things Outside the Home? Not on file 03/27/2023 Physical Sign of Abuse Present Not on file 1 Housing Stability Answer Date Recorded Current Living Arrangements Not on file 02/2023 Potentially Unsafe Housing Conditions Not on ada e 03/27/2023 Family and Community Support Answer Isidro e Recorded Help with Day-to-Day Activities Not on file 03/27/2023 Lonely or Isolated Not on file 03/27/2023 Employment Answer Date Recorded Do you want help finding or keeping work or a byron b? Not on file 03/27/2023 Disabilities Answer Date Recorded Concentrating, Remembering, or Making Decisions Difficulty Not on file 03/27/2023 Doing Errands Independently Difficulty Not on fi le 03/27/2023 Education Answer Date Recorded Help with school or training? Not on file Preferred Language Not on file 03/27/2023 Sex and Gender Information Value Date Recorded Sex Assigned at Not on file Legal Sex Male 10:08 AM EDT Gender Identity Not on file Sexual Orientation Not on file Last Filed Vital Signs Vital Sign Reading Time Taken Comments Blood Pressure 125/65 11/28/2016 12:15 PM EDT Pulse 61 11/28/2016 12:15 PM EDT Temperature 36.6 C (97.9 F) 12/21/2016 11:12 AM EDT Respiratory Rate 16 11/28/2016 12:15 PM EDT Oxygen Saturation 99% 11/28/2016 12:15 PM EDT Inhaled Oxygen Concentration - - Weight 66.2 kg (146 lb) 12/21/2016 11:12 AM EDT Height 171.5 cm (5' 7.5 ) 12/21/2016 11:12 AM ED T Body Mass Index 22.53 12/21/2016 11:12 AM EDT Plan of Treatment Health Maintenance Due Date Last Done Comments TDAP/TD VACCINES (1 - Tdap) 1965 COLOGUARD 1991 COLON CANCER SCREENING 5 YEAR SIGMOIDOSCOPY 1991 COLONOSCOPY [address] SCREEN[address] COLONOGRAPHY 1991 FECAL OCCULT BLOOD TEST 1991 FIT Testing (1 year) 1991 Pneumococcal Vaccine 50+ (1 of 1 - PCV) 1996 ZOSTER VACCINE (1 of 2) 1996 ANNUAL PHYSICAL 11/21/2016 HEPATITIS C SCREENING 11/21/2016 RSV Vaccine - Adults (1 - 1-dose 75+ series) INFLUENZA VACCINE 01/17/2025 COVID-19 Vaccine ( - 2023- season) 2025 [id number] Care Teams Real Estate Investor Relationship Specialty Start Date End Date Willow Craven APRN [address] [place] [id number] PCP - General Family Medicine 05/05/22
== END 2025-03-14 23:59 | disposition home or self-care (01) ==
LOC: LAB 10:30
PROVIDERS: PCP Nurse Practitioner Family; Visit Provider Nurse Practitioner Family
DX: Z51.81 Encounter for therapeutic drug level monitoring (principal); Z79.891 Long term (current) use of opiate analgesic
CPT/HCPCS: 36415